=== PATIENT | female | born 1950 | race Caucasian/White ===

== ENCOUNTER 2019-10-22 17:35 | Emergency (ER) | payer MEDICARE, MEDICAID, SELFPAY ==
[2019-10-22 17:50] VITALS: BP 203/68; PULSE 92; RESP 20; TEMP 37.1; O2SAT 94; BMI 51.7
[2019-10-22 18:02] VITALS: BP 186/64; PULSE 86; RESP 20; O2SAT 93
--- NOTE | 2019-10-22 18:20 | ECG_ITS ---
Measurements Intervals [place] Rate: 82 P: 54 [place]: 144 QRS: -72 QRSD: 133 T: 32 QT: 388 QTc: 456 SINUS RHYTHM RIGHT BUNDLE BRANCH BLOCK [120+ ms QRS DURATION, UPRIGHT V1, 40+ ms S IN I/aVL/V4/V5/V6] LEFT ANTERIOR FASCICULAR BLOCK [QRS AXIS <= -45, QR IN I, RS IN II] Compared to ECG 05/01/2019 20:34:47 Left anterior fascicular block now present Ectopic atrial rhythm no longer present Left-axis deviation no longer present Myocardial infarct finding no longer present Electronically Signed On 10-23-2019 17:02:27 CDT by Francisco Miranda M.D. [id number]
--- NOTE | 2019-10-22 18:20 | XR_ITS ---
WS: [id number] XR chest 1V portable [id number] REASON FOR EXAM: sob FINDINGS: The right hilum is again slightly prominent weren't sure if this secondary to mild scoliosi s or actual enlargement. Granulomas are seen throughout the hilar regions particularly the right side . The heart was otherwise normal with arteriosclerotic changes. There is no pneumonia, pleural effusion, pulmonary edema, or mass effect. The enlargement of the right hilum is somewhat similar to May 01, 2019. XR/XR chest 1V portable [id number] IMPRESSION: Persistent prominence of the right hilum.
--- NOTE | 2019-10-22 18:26 | W.ED.SOB ---
HPI - SOB/Dyspnea General: Chief Complaint: Shortness of Breath/Dyspnea Stated Complaint: sob Time Seen by Provider: 10/22/19 18:06 History of Present Illness: HPI Narrative: 69-year-old female says she has been short of breath and coughing and had some sinus pain for the last 5 days. She reports a subjective fever. No contact with people with coronavirus. She comes in because of the shortness of breath. MD elicited complaint: shortness of breath and cough Onset (ago): day(s) (5) Context: recent illness Timing: constant Severity: moderate Exacerbating factors: exertion Relieving factors: nothing Associated symptoms: Reports fever(s); Deny abdominal pain, chest pain, dizziness, nausea, palpitations or vomiting Review of Systems Const: Reports: fever(s); Denies: chills Eyes: Denies: change in vision ENMT: Reports: sinus pain; Denies: swelling of lips/tongue, epistaxis or post nasal drip Card: Reports: edema, swelling of feet/ankles and dyspnea on exertion; Denies: chest pain, palpitations or irregular heart rhythm Resp: Reports: dyspnea, productive cough and non-productive cough; Denies: wheezing GI: Denies: abdominal pain, nausea, vomiting, rectal pain, hematochezia or melena : Denies: dysuria or hematuria Musc: Denies: neck pain, back pain, joint redness or joint warmth Skin/Breast: Denies: rash, pruritus or erythema Neuro: Denies: headache(s), dizziness or vertigo Psych: Denies: anxiety PFS ED PFSH: Medical History (Updated 10/22/19 @ 21:03 by Azeem Carr DO) Abdominal pain Chronic back pain Diabetes Dysphagia Hiatal hernia History of mammogram (~2017) normal Hypertension Sleep apnea with use of continuous positive airway pressure (CPAP) Surgical History History of colonoscopy (~2017) History of laparoscopic cholecystectomy Family History Denies family history of Anesthesia complication Bleeding disorder Social History Smoking and tobacco status: never smoked Second hand smoke exposure: No Alcohol intake: never Adopted: No Caregiver/support person: Yes Lives independently: Yes Household members: none Housing: House Marital status: Single service: No Current occupational status: retired Current occupational exposures/hazards: No Pets and animals: No History of recent travel: No Sexually active: No Current gender identity: Male and Female Riya/Shinto: Lutheran Special riya needs: No Agree to transfusion: No Financial difficulty paying for basics: Decline to Answer Physical Exam Const: GENERAL APPEARANCE: well developed ORIENTATION/CONSCIOUSNESS: Yes oriented to person, Yes oriented to place and Yes oriented to time HENMT: COMMON NORMALS: normocephalic, external ears normal and Normal external nose present HEAD & SCALP: normocephalic FACE & SINUS: normal facial exam NOSE: Normal external nose present and No nasal discharge present EXTERNAL EAR: Yes external ears normal MOUTH: tongue normal Eye: COMMON NORMALS: Equal, round and reactive pupils present, EOMs intact bilaterally and conjunctivae normal EYELID: eyelids normal CONJUNCTIVA: Yes conjunctivae normal PUPIL: Yes Equal, round and reactive pupils present Neck/C-Spine: GENERAL: No tracheal deviation Chest: COMMONS NORMALS: normal inspection of the chest CHEST: No tenderness Resp: COMMON NORMALS: clear to auscultation bilaterally EFFORT & INSPECTION: No tachypneic, No respiratory distress, No retractions, No uses accessory muscles and No tracheal deviation AUSCULTATION: clear to auscultation bilaterally, no rhonchi, no wheezes and lung sounds not diminished Cardio: COMMON NORMALS: regular rate and regular rhythm RATE: regular rate RHYTHM: regular rhythm PERIPHERAL PULSES: radial pulses present GI: INSPECTION: No abdominal distension AUSCULTATION: No Hyperactive bowel sounds present and No Hypoactive bowel sounds present PALPATION: No Guarding due to palpation present (GI) and No Rigid due to palpation PERCUSSION: no dullness to percussion and no tympanic to percussion Neuro: SENSORIUM/ORIENTATION: Yes oriented to person, Yes oriented to place and Yes oriented to time Psych: COMMON NORMALS: mental status grossly normal Skin: COMMON NORMALS: no rashes or lesions noted GENERAL SKIN EXAM: no rashes or lesions noted Course Vital Signs: Vital signs: Vital Signs Temperature 98.8 F 10/22/19 17:50 Pulse Rate 84 10/22/19 20:39 Respiratory Rate 16 10/22/19 21:18 Blood Pressure 146/82 10/22/19 21:18 Pulse Oximetry 97 10/22/19 21:18 MDM - SOB/Dyspnea MDM Narrative: Medical decision making narrative: 69-year-old female presents with cough, sinus pain, shortness of breath. Her white count is 5.5. Hemoglobin is 11. She has some mild thrombocytopenia. She has a right lower lobe infiltrate on chest x-ray that appears new from prior. She will be placed on doxycycline, as her oxygen saturations on room air are normal. She was tested for COVID-19 while she was here she will quarantine until results are back. Lab Data: Labs: Lab Results 10/22/19 10/22/19 10/22/19 Range/Units 18:29 18:29 18:42 WBC 5.5 (4.0-10.0) 10^3/ uL RBC 4.16 (4.1-5.3) 10^6/u L Hgb 10.8 L (11.5-15.3) g/dL Hct 35.8 L (37.0-47.0) % MCV 86.1 (81-99) fL MCH 26.0 L (28.0-34.0) pg MCHC 30.2 (30.0-36.0) g/dL RDW 15.9 H (12.1-15.1) % Plt Count 125 L (130-400) 10^3/c mm MPV 9.3 (7.4-10.4) fL Neut % (Auto) 58.0 % Lymph % (Auto) 30.2 % [place] % (Auto) 7.7 % Eos % (Auto) 3.5 % Baso % (Auto) 0.2 % Neut # (Auto) 3.2 (1.8-7.7) 10^3/u L Lymph # (Auto) 1.7 (0.8-4.8) 10^3/u L [place] # (Auto) 0.4 (0.2-0.9) 10^3/u L Eos # (Auto) 0.2 (0.0-0.8) 10^3/u L Baso # (Auto) 0.0 (0.0-0.1) 10^3/u L Nucleated RBC % (a uto) 0 % Nucleated RBCs # 0.0 /100WBC Sodium 137 (136-145) mmol/L Potassium 4.4 (3.5-5.1) mmol/L Chloride 99 (98-107) mmol/L Carbon Dioxide 28 (22-29) mmol/L Anion Gap 14.4 (5-19) BUN 12 (8-23) mg/dL Creatinine 0.6 (0.5-0.9) mg/dL GFR Calculation 98.8 (90-130) mL/min Glucose 269 H (65-115) mg/dL Calculated Osmolal ity 290 (285-295) mOsm/k g Calcium 9.6 (8.5-10.5) mg/dL Total Bilirubin 0.2 (0.15-1.2) mg/dL AST 32 (0-32) U/L ALT 20 (0-33) U/L Alkaline Phosphata se 75 (35-105) IU/L Troponin T Baselin e 8 (0-10) ng/mL Troponin T 120 Min [place] (0-10) ng/mL Delta Troponin T (0-10) ABS# NT-Pro-B Natriuret Pep 34 (0-125) pg/mL Total Protein 6.6 (6.6-8.7) g/dL Albumin 3.3 L (3.5-5.2) g/dL Globulin 3.3 (1.3-4.6) g/dL Urine Color (Yellow) Urine Appearance (CLEAR) Urine pH (5-7) Ur Specific Gravit y (1.005-1.030) Urine Protein (Negative) Urine Glucose (UA) (Normal) Urine Ketones (Negative) Urine Blood (Negative) Urine Nitrate (Negative) Urine Bilirubin (NEGATIVE) Urine Urobilinogen (Negative) mg/dL Ur Leukocyte Whit ase (Negative) Urine RBC (0-2) /hpf Urine WBC (0-5) /hpf Ur Squamous Epith Cells (0-5) Urine Bacteria (NONE) Urine Mucus 10/22/19 10/22/19 Range/Units 19:52 20:26 WBC (4.0-10.0) 10^3/ uL RBC (4.1-5.3) 10^6/u L Hgb (11.5-15.3) g/dL Hct (37.0-47.0) % MCV (81-99) fL MCH (28.0-34.0) pg MCHC (30.0-36.0) g/dL RDW (12.1-15.1) % Plt Count (130-400) 10^3/c mm MPV (7.4-10.4) fL Neut % (Auto) % Lymph % (Auto) % [place] % (Auto) % Eos % (Auto) % Baso % (Auto) % Neut # (Auto) (1.8-7.7) 10^3/u L Lymph # (Auto) (0.8-4.8) 10^3/u L [place] # (Auto) (0.2-0.9) 10^3/u L Eos # (Auto) (0.0-0.8) 10^3/u L Baso # (Auto) (0.0-0.1) 10^3/u L Nucleated RBC % (a uto) % Nucleated RBCs # /100WBC Sodium (136-145) mmol/L Potassium (3.5-5.1) mmol/L Chloride (98-107) mmol/L Carbon Dioxide (22-29) mmol/L Anion Gap (5-19) BUN (8-23) mg/dL Creatinine (0.5-0.9) mg/dL GFR Calculation (90-130) mL/min Glucose (65-115) mg/dL Calculated Osmolal ity (285-295) mOsm/k g Calcium (8.5-10.5) mg/dL Total Bilirubin (0.15-1.2) mg/dL AST (0-32) U/L ALT (0-33) U/L Alkaline Phosphata se (35-105) IU/L Troponin T Baselin e (0-10) ng/mL Troponin T 120 Min [place] 7.97 (0-10) ng/mL Delta Troponin T -0.03 L (0-10) ABS# NT-Pro-B Natriuret Pep (0-125) pg/mL Total Protein (6.6-8.7) g/dL Albumin (3.5-5.2) g/dL Globulin (1.3-4.6) g/dL Urine Color Yellow (Yellow) Urine Appearance Hazy A (CLEAR) Urine pH 5 (5-7) Ur Specific Gravit y 1.025 (1.005-1.030) Urine Protein Neg (Negative) Urine Glucose (UA) 2+ (Normal) Urine Ketones Negative (Negative) Urine Blood Neg (Negative) Urine Nitrate Negative (Negative) Urine Bilirubin Neg (NEGATIVE) Urine Urobilinogen Norm (Negative) mg/dL Ur Leukocyte Whit [place] Trace H (Negative) Urine RBC 0-4 H (0-2) /hpf Urine WBC 5-10 H (0-5) /hpf Ur Squamous Epith Cells 25-40 H (0-5) Urine Bacteria 2+ H (NONE) Urine Mucus Trace Discharge Plan Discharge Patient Disposition: Home, Self-Care Clinical Impression: Pneumonia Qualifiers: Pneumonia type: due to unspecified organism Laterality: right Lung location: lower lobe of lung Qualified Code(s): J18.9 - Pneumonia, unspecified organism Condition: Stable Prescriptions: New doxycycline hyclate 100 mg capsule 100 mg PO BID 10 Days Qty: 20 RF: 0 albuterol sulfate 90 mcg/actuation HFA aerosol inhaler 2 inh INHALATION Q4H PRN (Reason: shortness of breath or wheezing) Qty: 18 RF: 0 No Action ibuprofen 800 mg tablet 800 mg PO Q8H RF: 0 Lantus Solostar U-100 Insulin 100 unit/mL (3 mL) insulin pen 55 unit SUBCUT DAILY RF: 0 Lantus Solostar U-100 Insulin 100 unit/mL (3 mL) insulin pen 45 unit SUBCUT .evening RF: 0 buspirone 15 mg tablet 15 mg PO BID RF: 0 hydrocodone-acetaminophen 10-325 mg tablet 1 tab PO Q6H PRN (Reason: Pain) RF: 0 hydroxyzine HCl 25 mg tablet 25 mg PO ONCE PRN (Reason: UNKNOWN) RF: 0 omeprazole 20 mg tablet,delayed release (DR/EC) 20 mg PO BID RF: 0 loratadine [Claritin] 10 mg tablet 10 mg PO DAILY RF: 0 lisinopril 10 mg tablet 10 mg PO DAILY RF: 0 metformin 1,000 mg tablet 500 mg PO DAILY RF: 0 cyclobenzaprine 10 mg tablet 10 mg PO TID RF: 0 tolterodine [Detrol] 2 mg tablet 2 mg PO DAILY RF: 0 cetirizine 10 mg Tablet 10 mg PO DAILY RF: 0 aspirin 81 mg Tablet,Delayed Release (Dr/Ec) 81 mg PO DAILY RF: 0 gabapentin 300 mg Capsule See Rx Instructions .ROUTE .COMPLEX RF: 0 Discharge Orders: Discharge Order (Routine); Ordered 10/22/19 Ordered By: Azeem Carr Referrals: Jose Ivan MD [Primary Care Provider] - 4-7 days Discharge Diet: Usual diet Discharge Activity: Increase activity as tolerated Patient Instructions: Pneumonia (ED) Activity Restrictions/Additional Instructions: Return for worsening chest pain, shortness of breath, fever despite 3-4 doses of antibiotics, other concerning symptoms. Check your blood pressure once daily and report numbers to your physician. Discharge Date/Time: 10/22/19 21:21 Coding Level of Care Code ED Speech Therapist Technician for Chg Fwd Exam Comprehensive
[2019-10-22 18:28] VITALS: BP 168/84; PULSE 81; RESP 20; O2SAT 94
[2019-10-22 18:43] LABS: Basophils % 0.2 %; Eosinophils # 0.2 10^3/uL (0.0-0.8); Eosinophils % 3.5 %; Hematocrit 35.8 % (37.0-47.0); Hemoglobin 10.8 g/dL (11.5-15.3); Lymphocytes # 1.7 10^3/uL (0.8-4.8); Lymphocytes % 30.2 %; Mean Corpuscular HGB Conc 30.2 g/dL (30.0-36.0); Mean Corpuscular Volume 86.1 fL (81-99); Mean Platelet Volume 9.3 fL (7.4-10.4); Monocytes # 0.4 10^3/uL (0.2-0.9); Monocytes % 7.7 %; Neutrophils # 3.2 10^3/uL (1.8-7.7); Nucleated Red Blood Cells % 0 %; Platelet Count 125 10^3/cmm (130-400); Red Blood Count 4.16 10^6/uL (4.1-5.3); Red Cell Distribution Width 15.9 % (12.1-15.1); White Blood Count 5.5 10^3/uL (4.0-10.0)
[2019-10-22 19:05] LABS: Alanine Aminotransferase 20 U/L (0-33); Albumin Level 3.3 g/dL (3.5-5.2); Alkaline Phosphatase 75 IU/L (35-105); Anion Gap 14.4 (5-19); Aspartate Amino Transferase 32 U/L (0-32); Blood Urea Nitrogen 12 mg/dL (8-23); Calcium 9.6 mg/dL (8.5-10.5); Carbon Dioxide 28 mmol/L (22-29); Chloride 99 mmol/L (98-107); Globulin 3.3 g/dL (1.3-4.6); Glomerular Filtration Rate 98.8 mL/min (90-130); Glucose 269 mg/dL (65-115); NT Pro B Type Natriuretic Pept 34 pg/mL (0-125); Osmolality Calculated 290 mOsm/kg (285-295); Potassium 4.4 mmol/L (3.5-5.1); Sodium 137 mmol/L (136-145); Total Bilirubin 0.2 mg/dL (0.15-1.2); Total Protein 6.6 g/dL (6.6-8.7)
[2019-10-22 19:19] LABS: Troponin(5th) Baseline 8 ng/mL (0-10)
[2019-10-22] MEDS: hyDRALAzine 20 mg/mL INJ 1 mL 10 MG IVP (20:14)
[2019-10-22 20:16] VITALS: BP 182/82; RESP 18; O2SAT 96
[2019-10-22] MEDS: amlodipine 10 mg Tablet PO (20:26)
[2019-10-22 20:31] LABS: Add Urine Microscopic? YES; Bilirubin Urine Neg (NEGATIVE); Blood Urine Neg (Negative); Glucose Urine UA 2+ (Normal); Ketones Urine Negative (Negative); Leukocyte Esterase Urine Trace (Negative); Nitrate Urine Negative (Negative); Protein Urine Neg (Negative); Specific Gravity, Urine 1.025 (1.005-1.030); Urine Appearance Hazy (CLEAR); Urine Color Yellow (Yellow); Urobilinogen Urine Norm (Negative); pH Urine 5 (5-7)
[2019-10-22 20:33] LABS: Bacteria Urine 2+; RBC Urine 0-4 /hpf (0-2); Squamous Epithelial Cell Urine 25-40 (0-5)
[2019-10-22 20:34] LABS: Add Urine Culture? No; Mucus Urine TRACE
[2019-10-22 20:39] VITALS: BP 162/68; PULSE 84; RESP 16; O2SAT 96
[2019-10-22] MEDS: doxycycline 100 mg Tablet PO (20:53)
[2019-10-22 20:58] LABS: Troponin 5 2HR 7.97 ng/mL (0-10)
[2019-10-22 20:59] LABS: Troponin 5 2HR Delta -0.03 ABS# (0-10)
[2019-10-22 21:18] VITALS: BP 146/82; RESP 16; O2SAT 97
[2019-10-24 19:07] LABS: Quest SARS-CoV-2 RNA NOT DETECTED (NOT DETECTED)
== END 2019-10-22 21:21 | disposition home or self-care (01) ==
PROVIDERS: Emergency Provider Emergency Medicine; Family Provider Family Medicine; PCP Family Medicine
DX: J18.9 Pneumonia, unspecified organism (principal); Z79.4 Long term (current) use of insulin; E11.9 Type 2 diabetes mellitus without complications
CPT/HCPCS: 12345; 36415; 71045; 80053; 81001; 83880; 84484; 85025; 87635; 93005; 99283; 99284; J0360

== ENCOUNTER 2019-10-23 14:10 | Emergency (ER) | payer MEDICARE, MEDICAID, SELFPAY ==
[2019-10-23 14:27] VITALS: BP 176/79; PULSE 87; RESP 14; TEMP 37.1; O2SAT 95; BMI 51.7
--- NOTE | 2019-10-23 14:48 | PC.NURSE ---
PT LEFT AND STATED SHE WAS GOING TO HER PCPS OFFICE
--- NOTE | 2019-10-24 20:33 | PC.NURSE ---
called and informed patient of negative COVID19 results
== END 2019-10-23 14:49 | disposition left against medical advice (07) ==
PROVIDERS: Emergency Provider Emergency Medicine; PCP Family Medicine
DX: Z53.21 Procedure and treatment not carried out due to patient leaving prior to being seen by health care provider (principal)
CPT/HCPCS: 99281

== ENCOUNTER 2020-04-13 10:46 | Emergency (ER) | payer MEDICARE, MEDICAID, SELFPAY ==
[2020-04-13 11:11] VITALS: BP 125/97; PULSE 84; RESP 18; TEMP 37; O2SAT 97; BMI 56.7
--- NOTE | 2020-04-13 11:13 | XRR_ITS ---
PROCEDURE INFORMATION: Exam: XR Chest, 1 View Exam date and time: 04/13/2020 11:19 AM Age: 69 years old Clinical indication: Chest pain; Type not specified TECHNIQUE: Imaging protocol: XR of the chest Views: 1 view. COMPARISON: CR XR chest 1V portable [id number] 10/22/2019 6:51 PM FINDINGS: Lungs: Unremarkable. No consolidation. Pleural space: Unremarkable. No pleural effusion. No pneumothorax. Heart/Mediastinum: Unremarkable. No cardiomegaly. Bones/joints: Unremarkable. XR/XR chest 1V portable [id number] IMPRESSION: No acute findings.
--- NOTE | 2020-04-13 11:13 | ECG_ITS ---
[facility] Test Date: 2020-04-13 Pat Name: Irma Rene Department: Room: Gender: Female [employer] Supervisor: : 1950 Requested By: Jaci Freitas Order Number: [id number] Bernice MD: Tobi Carcamo M.D. Measurements Intervals [place] Rate: 85 P: 65 [place]: 146 QRS: -79 QRSD: 135 T: 46 QT: 381 QTc: 454 Interpretive Statements SINUS RHYTHM RIGHT BUNDLE BRANCH BLOCK [120+ ms QRS DURATION, UPRIGHT V1, 40+ ms S IN I/aVL/V4/V5/V6] LEFT ANTERIOR FASCICULAR BLOCK [QRS AXIS <= -45, QR IN I, RS IN II] Compared to ECG 10/22/2019 20:51:38 No significant changes Electronically Signed On 04-14-2020 18:44:09 FOOT CUTTER by Tobi Carcamo M.D. [id number]
--- NOTE | 2020-04-13 11:40 | W.ED.CHESTPA ---
HPI - Chest Pain General: Chief Complaint: Chest Pain Stated Complaint: CHEST PAIN Time Seen by Provider: 04/13/20 11:12 History of Present Illness: HPI narrative: This patient is a 69-year-old female who comes in today with chest pain. She describes it as a dull pain in her left breast which at times becomes sharp stabbing pains that move around. The pain is been there constantly this morning but she is also had intermittent episodes over the past few weeks. Even before that she has had episodes about which she spoke to her doctor. She does not have any shortness of breath. She has some nausea after she eats but it is not related to the chest pain. She denies fevers or cough although the nurse noted that she has coughed a few times in the room. She has had some dysuria and said that she gets urinary tract infections about every month. She was most recently on antibiotics about a week ago she says. She denies changes in bowel habits. She denies history of cardiac disease but does have history of anxiety. She is a diabetic. MD complaint: chest pain Onset: during rest Pain location: left chest Pain radiation: none Severity: similar to previous episodes Quality: sharp and dull Relieving factors: nothing Exacerbating factors: other (She notices that it is worse when she is sitting or laying down at rest) Associated symptoms: Reports nausea; Deny dyspnea or fever(s) Treatment prior to arrival: none Review of Systems General: Reports: 10 or more systems reviewed and unremarkable except in HPI and below Const: Reports: malaise; Denies: fever(s), chills or fatigue Eyes: Denies: change in vision ENMT: Denies: odynophagia Card: Reports: chest pain; Denies: swelling of feet/ankles Resp: Denies: dyspnea, productive cough or non-productive cough GI: Reports: nausea : Reports: dysuria; Denies: flank pain or difficulty voiding Musc: Denies: neck pain or back pain Skin/Breast: Denies: rash Neuro: Denies: headache(s), numbness in extremities or weakness in extremities Psych: Reports: anxiety Gurmeet/Lymph: Denies: easy bruising or easy bleeding PFS ED PFSH: Medical History (Updated 04/13/20 @ 15:13 by Jaci Barajas MD) Abdominal pain Chronic back pain Diabetes Dysphagia Hiatal hernia History of mammogram (~2016) normal Hypertension Sleep apnea with use of continuous positive airway pressure (CPAP) Surgical History History of colonoscopy (~2016) History of laparoscopic cholecystectomy Family History Denies family history of Anesthesia complication Bleeding disorder Social History Smoking and tobacco status: never smoked Second hand smoke exposure: No Alcohol intake: never Adopted: No Caregiver/support person: Yes Lives independently: Yes Household members: none Housing: House Marital status: Single service: No Current occupational status: retired Current occupational exposures/hazards: No Pets and animals: No History of recent travel: No Sexually active: No Current gender identity: Male and Female Riya/Holiness: Sabianism Special riya needs: No Agree to transfusion: No Financial difficulty paying for basics: Decline to Answer Physical Exam Const: COMMON NORMALS: no acute distress, patient oriented x3, no limitations and alert GENERAL APPEARANCE: cooperative, comfortable and anxious NUTRITIONAL APPEARANCE: obese morbidly obese HENMT: HEAD & SCALP: normal to inspection FACE & SINUS: normal facial exam Eye: GENERAL EYE: appearance normal, both eyes and all related structures Neck/C-Spine: COMMON NORMALS: supple, no meningeal signs and no JVD Chest: COMMONS NORMALS: normal inspection of the chest Resp: COMMON NORMALS: normal respiratory effort, No use of accessory muscles and clear to auscultation bilaterally AUSCULTATION: clear to auscultation bilaterally Cardio: COMMON NORMALS: no JVD, regular rate, regular rhythm and No murmurs present (Cardio) RATE: regular rate RHYTHM: regular rhythm GI: COMMON NORMALS: Normal to inspection, nondistended, normoactive bowel sounds present, Soft to palpation and non-tender INSPECTION: Yes normal to inspection AUSCULTATION: Yes normoactive bowel sounds PALPATION: Yes Soft to palpation Back/Pelvis: COMMON NORMALS: thoracic and lumbar spine normal to inspection Extremity: COMMON NORMALS: normal to inspection Neuro: COMMON NORMALS: patient oriented x3, moves all extremities, no focal motor deficits and no sensory deficits noted SENSORIUM/ORIENTATION: Yes alert MENINGEAL SIGNS: Yes no meningeal signs Psych: COMMON NORMALS: mental status grossly normal, cooperative and normal affect Skin: COMMON NORMALS: no rashes or lesions noted and turgor normal GENERAL SKIN EXAM: no rashes or lesions noted and turgor normal Course ED course: Work-up for cardiac issues was benign. She understands that that is only telling us that she did not have a heart attack today and does not give any indication of something might be pending. She understands that she needs to follow-up with her doctor. She also does have cystitis and is symptomatic with that so I will treat it. She thinks she was on Augmentin most recently but is not sure. Going to put her on cefdinir today. I was not able to find any prior cultures in the EHR here. She also understands follow-up with her doctor regarding these recurrent UTIs. Vital Signs: Vital signs: Vital Signs Temperature 98.7 F 04/13/20 15:43 Pulse Rate 80 04/13/20 15:43 Respiratory Rate 18 04/13/20 15:43 Blood Pressure 139/67 04/13/20 15:43 Pulse Oximetry 97 04/13/20 15:43 MDM - Chest Pain Lab Data: Labs: Lab Results 04/13/20 04/13/20 04/13/20 Range/Units 11:48 11:48 11:48 WBC 5.7 (4.0-10.0) 10^3/ uL RBC 4.54 (4.1-5.3) 10^6/u L Hgb 12.4 (11.5-15.3) g/dL Hct 39.7 (37.0-47.0) % MCV 87.4 (81-99) fL MCH 27.3 L (28.0-34.0) pg MCHC 31.2 (30.0-36.0) g/dL RDW 14.0 (12.1-15.1) % Plt Count 130 (130-400) 10^3/c mm MPV 9.6 (7.4-10.4) fL Neut % (Auto) 54.6 % Lymph % (Auto) 34.2 % [place] % (Auto) 7.6 % Eos % (Auto) 3.2 % Baso % (Auto) 0.2 % Neut # (Auto) 3.11 (1.8-7.7) 10^3/u L Lymph # (Auto) 1.9 (0.8-4.8) 10^3/u L [place] # (Auto) 0.4 (0.2-0.9) 10^3/u L Eos # (Auto) 0.2 (0.0-0.8) 10^3/u L Baso # (Auto) 0.0 (0.0-0.1) 10^3/u L Nucleated RBC % (a uto) 0 % Nucleated RBCs # 0.0 /100WBC PT 14.10 (12.1-14.9) SECO NDS INR 1.05 (0.8-1.2) Sodium 134 L (136-145) mmol/L Potassium 4.4 (3.5-5.1) mmol/L Chloride 99 (98-107) mmol/L Carbon Dioxide 28 (22-29) mmol/L Anion Gap 11.4 (5-19) BUN 11 (8-23) mg/dL Creatinine 0.7 (0.5-0.9) mg/dL GFR Calculation 82.7 L (90-130) mL/min Glucose 243 H (65-115) mg/dL Calculated Osmolal ity 285 (285-295) mOsm/k g Calcium 9.0 (8.5-10.5) mg/dL Total Bilirubin 0.2 (0.15-1.2) mg/dL AST 41 H (0-32) U/L ALT 32 (0-33) U/L Alkaline Phosphata se 88 (35-105) IU/L Troponin T Baselin e (0-10) ng/L Troponin T 120 Min delfina (0-10) ng/L Delta Troponin T (0-10) ABS# NT-Pro-B Natriuret Pep 13 (0-125) pg/mL Total Protein 5.9 L (6.6-8.7) g/dL Albumin 3.3 L (3.5-5.2) g/dL Globulin 2.6 (1.3-4.6) g/dL Lipase 17 (13-60) U/L Urine Color (Yellow) Urine Appearance (CLEAR) Urine pH (5-7) Ur Specific Gravit y (1.005-1.030) Urine Protein (Negative) Urine Glucose (UA) (Normal) Urine Ketones (Negative) Urine Blood (Negative) Urine Nitrate (Negative) Urine Bilirubin (Negative) Urine Urobilinogen (Negative) mg/dL Ur Leukocyte Whit ase (Negative) Urine RBC (0-2) /hpf Urine WBC (0-5) /hpf Ur Squamous Epith Cells (0-5) /hpf Amorphous Sediment Urine Bacteria (NONE) /hpf 04/13/20 04/13/20 04/13/20 Range/Units 11:48 13:08 13:55 WBC (4.0-10.0) 10^3/ uL RBC (4.1-5.3) 10^6/u L Hgb (11.5-15.3) g/dL Hct (37.0-47.0) % MCV (81-99) fL MCH (28.0-34.0) pg MCHC (30.0-36.0) g/dL RDW (12.1-15.1) % Plt Count (130-400) 10^3/c mm MPV (7.4-10.4) fL Neut % (Auto) % Lymph % (Auto) % [place] % (Auto) % Eos % (Auto) % Baso % (Auto) % Neut # (Auto) (1.8-7.7) 10^3/u L Lymph # (Auto) (0.8-4.8) 10^3/u L [place] # (Auto) (0.2-0.9) 10^3/u L Eos # (Auto) (0.0-0.8) 10^3/u L Baso # (Auto) (0.0-0.1) 10^3/u L Nucleated RBC % (a uto) % Nucleated RBCs # /100WBC PT (12.1-14.9) SECO NDS INR (0.8-1.2) Sodium (136-145) mmol/L Potassium (3.5-5.1) mmol/L Chloride (98-107) mmol/L Carbon Dioxide (22-29) mmol/L Anion Gap (5-19) BUN (8-23) mg/dL Creatinine (0.5-0.9) mg/dL GFR Calculation (90-130) mL/min Glucose (65-115) mg/dL Calculated Osmolal ity (285-295) mOsm/k g Calcium (8.5-10.5) mg/dL Total Bilirubin (0.15-1.2) mg/dL AST (0-32) U/L ALT (0-33) U/L Alkaline Phosphata se (35-105) IU/L Troponin T Baselin e 6 (0-10) ng/L Troponin T 120 Min delfina 6.00 (0-10) ng/L Delta Troponin T 0 (0-10) ABS# NT-Pro-B Natriuret Pep (0-125) pg/mL Total Protein (6.6-8.7) g/dL Albumin (3.5-5.2) g/dL Globulin (1.3-4.6) g/dL Lipase (13-60) U/L Urine Color Straw (Yellow) Urine Appearance Hazy A (CLEAR) Urine pH 6.5 (5-7) Ur Specific Gravit y 1.015 (1.005-1.030) Urine Protein Trace (Negative) Urine Glucose (UA) Norm (Normal) Urine Ketones Negative (Negative) Urine Blood Neg (Negative) Urine Nitrate Positive H (Negative) Urine Bilirubin Neg (Negative) Urine Urobilinogen Norm (Negative) mg/dL Ur Leukocyte Whit ase 1+ H (Negative) Urine RBC None (0-2) /hpf Urine WBC 5-10 H (0-5) /hpf Ur Squamous Epith Cells 0-4 H (0-5) /hpf Amorphous Sediment Not Reportable Urine Bacteria 2+ H (NONE) /hpf Discharge Plan Discharge Patient Disposition: Home Clinical Impression: Chest pain Qualifiers: Chest pain type: unspecified Qualified Code(s): R07.9 - Chest pain, unspecified Urinary tract infection Qualifiers: Urinary tract infection type: acute cystitis Hematuria presence: without hematuria Qualified Code(s): N30.00 - Acute cystitis without hematuria Condition: Stable Prescriptions: New cefdinir 300 mg capsule 300 mg PO BID 10 Days Qty: 20 RF: 0 No Action ibuprofen 800 mg tablet 800 mg PO Q8H RF: 0 Lantus Solostar U-100 Insulin 100 unit/mL (3 mL) insulin pen 55 unit SUBCUT DAILY RF: 0 Lantus Solostar U-100 Insulin 100 unit/mL (3 mL) insulin pen 45 unit SUBCUT .evening RF: 0 buspirone 15 mg tablet 15 mg PO BID RF: 0 hydrocodone-acetaminophen 10-325 mg tablet 1 tab PO Q6H PRN (Reason: Pain) RF: 0 hydroxyzine HCl 25 mg tablet 25 mg PO ONCE PRN (Reason: UNKNOWN) RF: 0 omeprazole 20 mg tablet,delayed release (DR/EC) 20 mg PO BID RF: 0 loratadine [Claritin] 10 mg tablet 10 mg PO DAILY RF: 0 lisinopril 10 mg tablet 10 mg PO DAILY RF: 0 metformin 1,000 mg tablet 500 mg PO DAILY RF: 0 cyclobenzaprine 10 mg tablet 10 mg PO TID RF: 0 tolterodine [Detrol] 2 mg tablet 2 mg PO DAILY RF: 0 cetirizine 10 mg Tablet 10 mg PO DAILY RF: 0 aspirin 81 mg Tablet,Delayed Release (Dr/Ec) 81 mg PO DAILY RF: 0 gabapentin 300 mg Capsule See Rx Instructions .ROUTE .COMPLEX RF: 0 albuterol sulfate 90 mcg/actuation HFA aerosol inhaler 2 inh INHALATION Q4H PRN (Reason: shortness of breath or wheezing) Qty: 18 RF: 0 Discharge Orders: Discharge Order (Routine); Ordered 04/13/20 Ordered By: Jaci Barajas Referrals: Jose Ivan MD [Primary Care Provider] - Discharge Diet: Usual diet Discharge Activity: Resume usual activity Patient Instructions: Chest Pain (ED), Urinary Tract Infection in Women (ED) Activity Restrictions/Additional Instructions: Talk to Dr. Ivan about your chest pain and about the recurrent urinary tract infections. We did send a culture today so he can get the results of that next week. Return to the ER if worse chest pain, fever, vomiting or any other new or concerning symptoms. Coding Level of Care Code ED Hand Embroiderer for Chg Fwd Exam Comprehensive
[2020-04-13 11:49] VITALS: BP 125/97; PULSE 81; RESP 18; O2SAT 96
[2020-04-13 11:53] VITALS: BP 125/97; PULSE 79; RESP 18; O2SAT 95
[2020-04-13 11:53] LABS: Basophils % 0.2 %; Eosinophils # 0.2 10^3/uL (0.0-0.8); Eosinophils % 3.2 %; Hematocrit 39.7 % (37.0-47.0); Hemoglobin 12.4 g/dL (11.5-15.3); Lymphocytes # 1.9 10^3/uL (0.8-4.8); Lymphocytes % 34.2 %; Mean Corpuscular HGB Conc 31.2 g/dL (30.0-36.0); Mean Corpuscular Hemoglobin 27.3 pg (28.0-34.0); Mean Corpuscular Volume 87.4 fL (81-99); Mean Platelet Volume 9.6 fL (7.4-10.4); Monocytes # 0.4 10^3/uL (0.2-0.9); Monocytes % 7.6 %; Neutrophils # 3.11 10^3/uL (1.8-7.7); Neutrophils % 54.6 %; Nucleated Red Blood Cells % 0 %; Platelet Count 130 10^3/cmm (130-400); Red Blood Count 4.54 10^6/uL (4.1-5.3); White Blood Count 5.7 10^3/uL (4.0-10.0)
[2020-04-13 12:10] LABS: INR 1.05 (0.8-1.2)
[2020-04-13 12:18] LABS: Troponin(5th) Baseline 6 ng/L (0-10)
[2020-04-13 12:27] LABS: Alanine Aminotransferase 32 U/L (0-33); Albumin Level 3.3 g/dL (3.5-5.2); Alkaline Phosphatase 88 IU/L (35-105); Anion Gap 11.4 (5-19); Aspartate Amino Transferase 41 U/L (0-32); Blood Urea Nitrogen 11 mg/dL (8-23); Carbon Dioxide 28 mmol/L (22-29); Chloride 99 mmol/L (98-107); Globulin 2.6 g/dL (1.3-4.6); Glomerular Filtration Rate 82.7 mL/min (90-130); Glucose 243 mg/dL (65-115); Lipase 17 U/L (13-60); NT Pro B Type Natriuretic Pept 13 pg/mL (0-125); Osmolality Calculated 285 mOsm/kg (285-295); Potassium 4.4 mmol/L (3.5-5.1); Sodium 134 mmol/L (136-145); Total Bilirubin 0.2 mg/dL (0.15-1.2); Total Protein 5.9 g/dL (6.6-8.7)
[2020-04-13 13:56] VITALS: BP 125/69; PULSE 80; RESP 18; O2SAT 96
[2020-04-13 14:29] LABS: Troponin 5 2HR Delta 0 ABS# (0-10)
[2020-04-13 14:37] LABS: Blood Urine Neg (Negative); Glucose Urine UA Norm (Normal); Ketones Urine Negative (Negative); Nitrate Urine Positive (Negative); Protein Urine Trace (Negative); Specific Gravity, Urine 1.015 (1.005-1.030); Urine Appearance Hazy (CLEAR); Urine Color Straw (Yellow); pH Urine 6.5 (5-7)
[2020-04-13 14:38] LABS: Add Urine Culture? Yes; Add Urine Microscopic? YES; Bacteria Urine 2+ /hpf; Bilirubin Urine Neg (Negative); Leukocyte Esterase Urine 1+ (Negative); Squamous Epithelial Cell Urine 0-4 /hpf (0-5); Urobilinogen Urine Norm (Negative)
[2020-04-13 15:43] VITALS: BP 139/67; PULSE 80; RESP 18; TEMP 37.1; O2SAT 97
--- NOTE | 2020-04-13 17:13 | ECG_ITS ---
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 Measurements Intervals [place] Rate: 80 P: 54 MD: 161 QRS: -77 QRSD: 138 T: 14 QT: 397 QTc: 459 Interpretive Statements SINUS RHYTHM RIGHT BUNDLE BRANCH BLOCK [120+ ms QRS DURATION, UPRIGHT V1, 40+ ms S IN I/aVL/V4/V5/V6] LEFT ANTERIOR FASCICULAR BLOCK [QRS AXIS <= -45, QR IN I, RS IN II] POSSIBLE SEPTAL MYOCARDIAL INFARCTION , PROBABLY OLD [30 ms Q WAVE IN V1/V2] Compared to ECG 04/13/2020 11:04:20 Myocardial infarct finding now present Electronically Signed On 04-14-2020 19:18:17 GERIATRIC SOCIAL WORKER by Tobi Carcamo M.D. [id number]
== END 2020-04-13 15:44 | disposition home or self-care (01) ==
PROVIDERS: Emergency Provider Emergency Medicine; PCP Family Medicine
DX: R07.9 Chest pain, unspecified (principal); N30.00 Acute cystitis without hematuria; Z79.4 Long term (current) use of insulin; Z79.82 Long term (current) use of aspirin; E11.9 Type 2 diabetes mellitus without complications
CPT/HCPCS: 12345; 71045; 80053; 81001; 83690; 83880; 84484; 85025; 85610; 87077; 87086; 87186; 93005; 99283

== ENCOUNTER → 2020-06-04 14:04 | Outpatient (BNVA) | payer MEDICARE, MEDICAID, SELFPAY | PROVIDERS: PCP Family Medicine; Referring Provider Family Medicine; Visit Provider Internal Medicine | DX: E11.40 Type 2 diabetes mellitus with diabetic neuropathy, unspecified (principal); E11.65 Type 2 diabetes mellitus with hyperglycemia; N39.0 Urinary tract infection, site not specified; R63.5 Abnormal weight gain | CPT/HCPCS: 99204 ==

== ENCOUNTER 2020-06-05 13:39 | Outpatient (CLI) | payer MEDICARE, MEDICAID, SELFPAY ==
[2020-06-05 14:36] LABS: Thyroid Stimulating Hormone 1.22 uIU/mL (0.27-4.20)
[2020-06-05 15:50] LABS: Estmated Average Glucose 235; Hemoglobin A1C 9.8 % (4.0-6.0)
[2020-06-05 17:50] LABS: Free T4 Free Thyroxine 1.26 ng/dL (0.82-1.77)
== END 2020-06-05 13:40 | disposition home or self-care (01) ==
LOC: LAB 13:42
PROVIDERS: PCP Family Medicine; Visit Provider Internal Medicine
DX: E11.40 Type 2 diabetes mellitus with diabetic neuropathy, unspecified (principal); E11.65 Type 2 diabetes mellitus with hyperglycemia; R63.5 Abnormal weight gain
CPT/HCPCS: 36415; 83036; 84439; 84443

== ENCOUNTER 2020-11-18 06:25 | Emergency (ER) | payer MEDICARE, MEDICAID, SELFPAY ==
[2020-11-18 06:36] VITALS: BP 174/70; PULSE 87; RESP 18; TEMP 36.8; O2SAT 97; BMI 51.7
--- NOTE | 2020-11-18 07:45 | CT_ITS ---
WS: [id number] CT ABDOMEN PELVIS TECHNIQUE: Contrast-enhanced CT of the abdomen and pelvis with coronal and sagittal reformatted image s. CLINICAL INFORMATION: abd pain COMPARISON: DLP: 1950.[address] scans at [facility] use at least one of these dose optimization techniques: automat ed exposure control; mA and/or kV adjustment per patient size (includes targeted exams where dose is matched to clinical indication); or iterative reconstruction. FINDINGS: Lung bases are well aerated. Hepatomegaly with slight cirrhotic configuration unchanged from 2019. No rmal portal vein and splenic vein. 12 mm left adrenal adenoma is unchanged. Splenomegaly. Normal GE j unction. Normal pancreatic parenchymal enhancement. Prior cholecystectomy. Normal caliber abdominal aorta. No hydronephrosis in either kidney. Right Adrenal gland is normal. Pr ior ventral abdominal wall hernia repair. Sigmoid diverticulosis. No evidence of acute diverticulitis . Fat-containing umbilical hernia. Prior hysterectomy. CT/CT abdomen pelvis w con* [id number] IMPRESSION: 1. Hepatomegaly with diffuse fatty infiltration of the liver. Slight cirrhotic contour to the liver unchanged 2019. Correlate with liver function tests. Sple nomegaly. 2. Prior cholecystectomy and hysterectomy. 3. Prior ventral abdominal wall hernia repair. 4. Normal sigmoid colon. A few sigmoid diverticuli. No evidence of acute diver ticulitis. 5. Stable 12 mm left adrenal adenoma. 6. No acute abdominal or pelvic findings. Notified Humphrey Velasquez DO at 11/18/2020 9:35 AM.
--- NOTE | 2020-11-18 07:46 | W.ED.GENADLT ---
HPI - General Adult General: Chief complaint: General Medical Stated complaint: SOB Time Seen by Provider: 11/18/20 07:01 History of Present Illness: HPI narrative: 70-year-old female presents to the emergency room with complaints of shortness of breath. She denies it directly to abdominal discomfort. She states she has been constipated with nausea for the last month whenever she eats she gets very bloated when she gets bloated she feels like she cannot take a deep breath and feels more short short of breath. She does not really have any orthopnea denies any chest pain no diarrhea no anosmia no productive cough no orthopnea. She denies dysuria urgency or frequency. Onset (ago): month(s) (1) Location: abdomen Radiation: non-radiation Severity: moderate Quality: aching Pain Consistency: intermittent Relieving factors: none Exacerbating factors: eating Associated symptoms: Reports dyspnea, malaise, nausea, short of breath and weakness; Deny chest pain, confusion, cough, diaphoresis, decreased appetite, fevers/chills, headache(s), rash, palpitations, seizures, syncope or vomiting Treatments prior to arrival: none Review of Systems Const: Reports: malaise; Denies: diaphoresis ENMT: Denies: throat pain, ear or mastoid pain, nasal discharge or nasal congestion Card: Denies: chest pain, palpitations or syncope Resp: Reports: dyspnea GI: Reports: nausea; Denies: vomiting : Denies: flank pain, difficulty voiding, dysuria, urinary frequency or urinary urgency Skin/Breast: Denies: rash Neuro: Denies: headache(s) or confusion PFS ED PFSH: Medical History Abdominal pain Chronic back pain Diabetes Dysphagia Fibromyalgia Hiatal hernia History of mammogram (~2017) normal Hypertension Recurrent UTI Sciatica Sleep apnea with use of continuous positive airway pressure (CPAP) Surgical History History of colonoscopy (~2017) History of laparoscopic cholecystectomy History of removal of cyst RENAL History of total abdominal hysterectomy and bilateral salpingo-oophorectomy Hx of appendectomy Hx of hysterectomy Family History Mother Diabetes Father No problems noted. Denies family history of Colon cancer Ovarian cancer Heart disease Hypercholesteremia Breast cancer Uterine cancer Thyroid disease Social History Smoking and tobacco status: never smoked Second hand smoke exposure: No Alcohol intake: never Additional social history: - Tobacco use: Never Alcohol use: denies Drug use: denies Physical Exam Const: COMMON NORMALS: no acute distress GENERAL APPEARANCE: cooperative and comfortable ORIENTATION/CONSCIOUSNESS: Yes awake, Yes oriented to person, Yes oriented to place and Yes oriented to time HENMT: COMMON NORMALS: normocephalic, atraumatic, hearing grossly normal bilaterally and external ears normal HEAD & SCALP: normocephalic and atraumatic EXTERNAL EAR: Yes external ears normal Neck/C-Spine: COMMON NORMALS: no JVD Resp: COMMON NORMALS: normal respiratory effort, No retractions, No use of accessory muscles and clear to auscultation bilaterally AUSCULTATION: clear to auscultation bilaterally Cardio: COMMON NORMALS: no JVD, regular rate, regular rhythm and No murmurs present (Cardio) RATE: regular rate RHYTHM: regular rhythm GI: COMMON NORMALS: No hepatosplenomegaly present AUSCULTATION: Yes Hypoactive bowel sounds present PALPATION: Yes Tenderness to palpation present (GI) (Periumbilical), No Guarding due to palpation present (GI) and Yes No hepatosplenomegaly present Extremity: COMMON NORMALS: normal to inspection, capillary refill normal, no clubbing, cyanosis or edema, no calf tenderness and no pedal edema Neuro: SENSORIUM/ORIENTATION: Yes oriented to person, Yes oriented to place and Yes oriented to time Skin: COMMON NORMALS: no rashes or lesions noted GENERAL SKIN EXAM: no rashes or lesions noted Course Vital Signs: Vital signs: Vital Signs Temperature 98.0 F 11/18/20 10:33 Pulse Rate 91 11/18/20 10:33 Respiratory Rate 20 H 11/18/20 10:33 Blood Pressure 150/91 11/18/20 10:33 Pulse Oximetry 95 11/18/20 10:33 MDM - General Adult MDM Narrative: Medical decision making narrative: Reviewed labs with the pain patient. She is doing somewhat better will get and go ahead and discharge home with think a lot of her issues are diabetic gastroparesis she also some constipation issues we will start her on some mag citrate for now encourage her to follow-up with her primary care doctor to be further evaluated discussed medications for diabetic gastroparesis return if has problems Lab Data: Labs: Lab Results 11/18/20 11/18/20 11/18/20 Range/Units 07:21 07:56 08:22 WBC 6.8 (4.0-10.0) 10^3/ uL RBC 4.37 (4.1-5.3) 10^6/u L Hgb 12.5 (11.5-15.3) g/dL Hct 39.3 (37.0-47.0) % MCV 89.9 (81-99) fL MCH 28.6 (28.0-34.0) pg MCHC 31.8 (30.0-36.0) g/dL RDW 13.3 (12.1-15.1) % Plt Count 155 (130-400) 10^3/c mm MPV 9.5 (7.4-10.4) fL Neut % (Auto) 58.8 % Lymph % (Auto) 30.5 % [place] % (Auto) 8.3 % Eos % (Auto) 1.8 % Baso % (Auto) 0.3 % Neut # (Auto) 3.98 (1.8-7.7) 10^3/u L Lymph # (Auto) 2.1 (0.8-4.8) 10^3/u L [place] # (Auto) 0.6 (0.2-0.9) 10^3/u L Eos # (Auto) 0.1 (0.0-0.8) 10^3/u L Baso # (Auto) 0.0 (0.0-0.1) 10^3/u L Nucleated RBC % (a uto) 0 % Nucleated RBCs # 0.0 /100WBC Sodium (136-145) mmol/L Potassium (3.5-5.1) mmol/L Chloride (98-107) mmol/L Carbon Dioxide (22-29) mmol/L Anion Gap (5-19) BUN (8-23) mg/dL Creatinine (0.5-0.9) mg/dL GFR Calculation Glucose (65-115) mg/dL POC Glucose 97 (70-110) mg/dL Calculated Osmolal ity (285-295) mOsm/k g Calcium (8.5-10.5) mg/dL Total Bilirubin (0.15-1.2) mg/dL AST (0-32) U/L ALT (0-33) U/L Alkaline Phosphata se (35-105) IU/L Total Protein (6.6-8.7) g/dL Albumin (3.5-5.2) g/dL Globulin (1.3-4.6) g/dL Lipase (13-60) U/L Urine Color Yellow (Yellow) Urine Appearance Clear (CLEAR) Urine pH 6.5 (5-7) Ur Specific Gravit y 1.020 (1.005-1.030) Urine Protein Neg (Negative) Urine Glucose (UA) Norm (Normal) Urine Ketones Negative (Negative) Urine Blood Neg (Negative) Urine Nitrate Negative (Negative) Urine Bilirubin Neg (Negative) Urine Urobilinogen Norm (Negative) mg/dL Ur Leukocyte Whit ase Negative (Negative) 11/18/20 Range/Units 08:22 WBC (4.0-10.0) 10^3/ uL RBC (4.1-5.3) 10^6/u L Hgb (11.5-15.3) g/dL Hct (37.0-47.0) % MCV (81-99) fL MCH (28.0-34.0) pg MCHC (30.0-36.0) g/dL RDW (12.1-15.1) % Plt Count (130-400) 10^3/c mm MPV (7.4-10.4) fL Neut % (Auto) % Lymph % (Auto) % [place] % (Auto) % Eos % (Auto) % Baso % (Auto) % Neut # (Auto) (1.8-7.7) 10^3/u L Lymph # (Auto) (0.8-4.8) 10^3/u L Burt # (Auto) (0.2-0.9) 10^3/u L Eos # (Auto) (0.0-0.8) 10^3/u L Baso # (Auto) (0.0-0.1) 10^3/u L Nucleated RBC % (a uto) % Nucleated RBCs # /100WBC Sodium 135 L (136-145) mmol/L Potassium 4.1 (3.5-5.1) mmol/L Chloride 101 (98-107) mmol/L Carbon Dioxide 26 (22-29) mmol/L Anion Gap 12.1 (5-19) BUN 10 (8-23) mg/dL Creatinine 0.5 (0.5-0.9) mg/dL GFR Calculation Not Reportable Glucose 81 (65-115) mg/dL POC Glucose (70-110) mg/dL Calculated Osmolal ity 278 L (285-295) mOsm/k g Calcium 9.2 (8.5-10.5) mg/dL Total Bilirubin 0.3 (0.15-1.2) mg/dL AST 28 (0-32) U/L ALT 23 (0-33) U/L Alkaline Phosphata se 67 (35-105) IU/L Total Protein 6.6 (6.6-8.7) g/dL Albumin 3.5 (3.5-5.2) g/dL Globulin 3.1 (1.3-4.6) g/dL Lipase 35 (13-60) U/L Urine Color (Yellow) Urine Appearance (CLEAR) Urine pH (5-7) Ur Specific Gravit y (1.005-1.030) Urine Protein (Negative) Urine Glucose (UA) (Normal) Urine Ketones (Negative) Urine Blood (Negative) Urine Nitrate (Negative) Urine Bilirubin (Negative) Urine Urobilinogen (Negative) mg/dL Ur Leukocyte Whit ase (Negative) Discharge Plan Discharge Patient Disposition: Home Clinical Impression: Constipation, Obesity, Diabetic gastroparesis, Diabetes mellitus Condition: Stable Prescriptions: New magnesium citrate Solution 150 ml PO BID PRN (Reason: constipation) Qty: 296 RF: 0 No Action ibuprofen 800 mg tablet 800 mg PO Q8H RF: 0 Lantus Solostar U-100 Insulin 100 unit/mL (3 mL) insulin pen 55 unit SUBCUT DAILY RF: 0 Lantus Solostar U-100 Insulin 100 unit/mL (3 mL) insulin pen 45 unit SUBCUT .evening RF: 0 buspirone 15 mg tablet 15 mg PO BID RF: 0 hydrocodone-acetaminophen 10-325 mg tablet 1 tab PO Q6H PRN (Reason: Pain) RF: 0 hydroxyzine HCl 25 mg tablet 25 mg PO ONCE PRN (Reason: UNKNOWN) RF: 0 omeprazole 20 mg tablet,delayed release (DR/EC) 20 mg PO BID RF: 0 loratadine [Claritin] 10 mg tablet 10 mg PO DAILY RF: 0 lisinopril 10 mg tablet 10 mg PO DAILY RF: 0 cyclobenzaprine 10 mg tablet 10 mg PO TID RF: 0 tolterodine [Detrol] 2 mg tablet 2 mg PO DAILY RF: 0 Victoza 2-Jae 0.6 mg/0.1 mL (18 mg/3 mL) pen injector See Rx Instructions SUBCUT .COMPLEX Qty: 6 RF: 3 (DME) pen needle, diabetic [BD Melony 2nd Gen Pen Needle] 32 gauge x 5/32 needle See Rx Instructions .ROUTE .MEDSUPPLY Qty: 50 RF: 3 cetirizine 10 mg Tablet 10 mg PO DAILY RF: 0 aspirin 81 mg Tablet,Delayed Release (Dr/Ec) 81 mg PO DAILY RF: 0 albuterol sulfate 90 mcg/actuation HFA aerosol inhaler 2 inh INHALATION Q4H PRN (Reason: shortness of breath or wheezing) Qty: 18 RF: 0 gabapentin 300 mg capsule 300 mg PO TID PRNRF: 0 Discharge Orders: Discharge ED (Routine); Ordered 11/18/20 Ordered By: Humphrey Velasquez Referrals: Jose Ivan MD [Primary Care Provider] - Discharge Diet: Usual diet Discharge Activity: Resume usual activity Patient Instructions: Opioid Safety Activity Restrictions/Additional Instructions: Follow-up with your primary care doctor within the next 1 to 2 weeks. Coding Level of Care Code ED Workforce Management Consultant for Jamshid Fwd Exam Comprehensive
[2020-11-18 08:00] LABS: Add Urine Microscopic? NO; Charge for UA Resulting for Rev
[2020-11-18 08:10] LABS: Bilirubin Urine Neg (Negative); Blood Urine Neg (Negative); Glucose Urine UA Norm (Normal); Ketones Urine Negative (Negative); Leukocyte Esterase Urine Negative (Negative); Nitrate Urine Negative (Negative); Protein Urine Neg (Negative); Urine Appearance Clear (CLEAR); Urine Color Yellow (Yellow); Urobilinogen Urine Norm (Negative); pH Urine 6.5 (5-7)
[2020-11-18 08:17] LABS: Glucose Point of Care 97 mg/dL (70-110)
[2020-11-18 08:35] LABS: Basophils % 0.3 %; Eosinophils # 0.1 10^3/uL (0.0-0.8); Eosinophils % 1.8 %; Hematocrit 39.3 % (37.0-47.0); Hemoglobin 12.5 g/dL (11.5-15.3); Lymphocytes # 2.1 10^3/uL (0.8-4.8); Lymphocytes % 30.5 %; Mean Corpuscular HGB Conc 31.8 g/dL (30.0-36.0); Mean Corpuscular Hemoglobin 28.6 pg (28.0-34.0); Mean Corpuscular Volume 89.9 fL (81-99); Mean Platelet Volume 9.5 fL (7.4-10.4); Monocytes # 0.6 10^3/uL (0.2-0.9); Monocytes % 8.3 %; Neutrophils # 3.98 10^3/uL (1.8-7.7); Neutrophils % 58.8 %; Nucleated Red Blood Cells % 0 %; Platelet Count 155 10^3/cmm (130-400); Red Blood Count 4.37 10^6/uL (4.1-5.3); Red Cell Distribution Width 13.3 % (12.1-15.1); White Blood Count 6.8 10^3/uL (4.0-10.0)
[2020-11-18 08:47] LABS: Alanine Aminotransferase 23 U/L (0-33); Albumin Level 3.5 g/dL (3.5-5.2); Alkaline Phosphatase 67 IU/L (35-105); Anion Gap 12.1 (5-19); Aspartate Amino Transferase 28 U/L (0-32); Blood Urea Nitrogen 10 mg/dL (8-23); Calcium 9.2 mg/dL (8.5-10.5); Carbon Dioxide 26 mmol/L (22-29); Chloride 101 mmol/L (98-107); Globulin 3.1 g/dL (1.3-4.6); Glucose 81 mg/dL (65-115); Lipase 35 U/L (13-60); Osmolality Calculated 278 mOsm/kg (285-295); Potassium 4.1 mmol/L (3.5-5.1); Sodium 135 mmol/L (136-145); Total Bilirubin 0.3 mg/dL (0.15-1.2); Total Protein 6.6 g/dL (6.6-8.7)
--- NOTE | 2020-11-18 08:57 | XRR_ITS ---
PROCEDURE INFORMATION: Exam: XR Chest Exam date and time: 11/18/2020 8:57 AM Age: 70 years old Clinical indication: Cough and dyspnea; Additional info: Dyspnea/cough TECHNIQUE: Imaging protocol: XR of the chest. Views: 1 view. COMPARISON: CR XR chest 1V portable [id number] 04/13/2020 11:18 AM FINDINGS: Lungs: Unremarkable. No consolidation. Pleural spaces: Unremarkable. No pleural effusion. No pneumothorax. Heart/Mediastinum: The heart and mediastinum are normal considering mild patient rotation to the right. Bones/joints: Unremarkable. XR/XR chest 1V portable [id number] IMPRESSION: No acute cardiopulmonary abnormality.
[2020-11-18] MEDS: iohexol 300 mg/mL 100 mL Btl IV (09:02)
[2020-11-18 09:36] VITALS: BP 120/85; PULSE 78; RESP 20; O2SAT 96
[2020-11-18 10:33] VITALS: BP 150/91; PULSE 91; RESP 20; TEMP 36.7; O2SAT 95
== END 2020-11-18 10:53 | disposition home or self-care (01) ==
PROVIDERS: Emergency Provider Family Medicine; PCP Family Medicine
DX: K59.00 Constipation, unspecified (principal); E66.9 Obesity, unspecified; E11.43 Type 2 diabetes mellitus with diabetic autonomic (poly)neuropathy; K31.84 Gastroparesis; Z79.4 Long term (current) use of insulin; Z79.82 Long term (current) use of aspirin; I10 Essential (primary) hypertension
CPT/HCPCS: 36416; 71045; 74177; 80053; 81003; 82962; 83690; 85025; 99283; Q9967

== ENCOUNTER → 2021-01-09 12:06 | Outpatient (BNVA) | payer MEDICARE, MEDICAID, SELFPAY | PROVIDERS: PCP Family Medicine; Visit Provider Internal Medicine Cardiovascular Disease | DX: R06.02 Shortness of breath (principal); I50.33 Acute on chronic diastolic (congestive) heart failure; R06.00 Dyspnea, unspecified; R07.89 Other chest pain; E11.40 Type 2 diabetes mellitus with diabetic neuropathy, unspecified; E11.65 Type 2 diabetes mellitus with hyperglycemia; R03.0 Elevated blood-pressure reading, without diagnosis of hypertension | CPT/HCPCS: 80048; 83880; 85379 ==

== ENCOUNTER 2021-02-12 12:39 | Outpatient (CLI) | payer MEDICARE, MEDICAID, SELFPAY ==
--- NOTE | 2021-02-12 12:50 | USCV_ITS ---
Irma Rene Age: 70 Gender: F : 1950 Exam Date: 02/12/2021 13:46 Ordering Phys: Azael Ackerman MD ([email or web address]) Technologist: Estrella Kirkland [place] [facility] [place]: DYSPNEA BP: 105 / 80 HR: 68 Rhythm: Sinus Technical Quality: Technically difficult study MEASUREMENTS (Male / Female) Normal Values 2D ECHO LV Diastolic Diameter PLAX 4.0 cm 4.2 - 5.9 / 3.9 - 5.3 cm LV Systolic Diameter PLAX 2.9 cm IVS Diastolic Thickness 1.4 cm 0.6 - 1.0 / 0.6 - 0.9 cm IVS Systolic Thickness 2.0 cm LVPW Diastolic Thickness 1.5 cm 0.6 - 1.0 / 0.6 - 0.9 cm LVPW Systolic Thickness 1.8 cm LVOT Diameter 2.0 cm LV Ejection Fraction 2D Teich 53.6 % LV Ejection Fraction MOD 2C 50.1 % LV Ejection Fraction 2C AL 51.0 % LA Diameter 2.4 cm LA Width 4.0 cm LA Height 4.7 cm RA Width 4.0 cm RA Height 4.4 cm Aorta at Sinotubular Diameter 2.0 cm DOPPLER AV Peak Velocity 184.0 cm/s LVOT Peak Velocity 87.0 cm/s AV Area Cont Eq vti 1.6 cm squared AV Area Cont Eq pk 1.5 cm squared MV Area PHT 4.1 cm squared Mitral E to A Ratio 1.1 MV E' Velocity 57.0 cm/s Mitral E to MV E' Ratio 12.3 Mitral E to LV E' Lateral Ratio 10.5 Mitral E to LV E' Septal Ratio 15.0 TR Peak Velocity 274.0 cm/s TR Peak Gradient 30.0 mmHg TV Peak E Velocity 71.0 cm/s Right Atrial Pressure 8.0 mmHg Pulmonary Artery Systolic Pressu 38.0 mmHg PV Peak Velocity 113.0 cm/s RV Acceleration Time 0.1 s RV Ejection Time 0.3 s RV AcT/ET 0.5 FINDINGS Left Ventricle Normal left ventricular size and systolic function, EF 55 %. No regional wall motion abnormalities. Right Ventricle The right ventricle is normal in size and function. Right Atrium The right atrium is normal in size. Left Atrium Mildly increased left atrial size. Mitral Valve Thickened mitral valve. Mild mitral annular calcification. Aortic Valve Aortic valve sclerosis. Tricuspid Valve No gross abnormalities noted Pulmonic Valve Pulmonic valve not well visualized. Pericardium Normal pericardium without effusion. Aorta Normal ascending aorta dimension. CONCLUSIONS Normal left ventricular size and systolic function, EF 55 %. No regional wall motion abnormalities. Thickened mitral valve. Mild mitral annular calcification. Aortic valve sclerosis. There is no pericardial effusion. There are no intracardiac masses. No previous study is available for comparison. Dr Azael Ackerman MD [facility] (Electronically Signed) Final Date: 12 February 2021 20:11 S
--- NOTE | 2021-02-12 13:00 | CT_ITS ---
WS: [id number] CTA THORACIC TECHNIQUE: Contrast enhanced CTA of the thoracic aorta with coronal and sagittal reformatted images a nd maximum intensity projection (MIP) images. CLINICAL INFORMATION: I74.9 - Embolism and thrombosis of unspecified artery COMPARISON: DLP: 3461.[address] scans at [facility] use at least one of these dose optimization techniques: automated e xposure control; mA and/or kV adjustment per patient size (includes targeted exams where dose is matc hed to clinical indication); or iterative reconstruction. FINDINGS:Proximal main pulmonary arteries are normal. Segmental and subsegmental pulmonary arteries a ppear patent. Distal most pulmonary arteries not well evaluated. No evidence of pulmonary embolus.Sma ll noncalcified nodule left upper lobe measuring 4 mm unchanged since 2019. Lungs are well aerated. No acute pulmonary infiltrates. No focal pneumonia or pleural fluid. No media stinal or hilar lymphadenopathy. Calcified right hilar nodes. Hepatomegaly with diffuse cirrhotic configuration to the liver. Splenomegaly. Small esophageal hiatal hernia. Small left adrenal nodule likely adenoma. Right adrenal gland is normal. Cholecystectomy cli ps. Normal caliber thoracic aorta. A few prominent lymph nodes in the upper abdomen likely reactive. Mild thoracic kyphosis. Hypertrophic changes thoracic spine. CT/CT angio chest 13575 IMPRESSION: 1. Proximal main pulmonary arteries are normal. No evidence of pulmonary embol us. 2. Mild chronic emphysematous changes. No acute pulmonary infiltrates. 3. Small noncalcified nodule left upper lobe measuring 4 mm unchanged since 19. 4. Normal caliber thoracic aorta. 5. Hepatomegaly with cirrhotic configuration to the liver. Splenomegaly. 6. Partially visualized ventral abdominal wall hernia repair.
[2021-02-12] MEDS: iohexol 350 mg/mL 100 mL Btl IV ×2 (13:28)
== END 2021-02-12 12:40 | disposition home or self-care (01) ==
PROVIDERS: PCP Family Medicine; Visit Provider Internal Medicine Cardiovascular Disease
DX: R06.00 Dyspnea, unspecified (principal); R07.9 Chest pain, unspecified; I74.9 Embolism and thrombosis of unspecified artery; I70.0 Atherosclerosis of aorta; R91.1 Solitary pulmonary nodule; R16.2 Hepatomegaly with splenomegaly, not elsewhere classified
CPT/HCPCS: 71275; 93306

== ENCOUNTER 2021-03-03 07:13 | Outpatient (CLI) | payer MEDICARE, MEDICAID, SELFPAY ==
--- NOTE | 2021-03-03 07:15 | MM_ITS ---
WS: [id number] BILATERAL DIGITAL SCREENING MAMMOGRAPHY WITH CAD CLINICAL INFORMATION: SCREENING HISTORY: Screening mammogram. Left breast soreness. COMPARISON: February 10, 2017 TECHNIQUE: Bilateral CC and MLO views. FINDINGS: Scattered fibroglandular densities bilaterally. No suspicious focal mass, asymmetry, calcifications, or architectural distortion. No evidence of malignancy. A few tiny punctate calcifications. MM/[place] [address] IMPRESSION: BI-RADS: 2-Benign FOLLOW UP: 1 Year Follow-up Recommend return to annual screening mammography.
== END 2021-03-03 07:14 | disposition home or self-care (01) ==
LOC: RADSHAW 07:13
PROVIDERS: PCP Family Medicine; Visit Provider Family Medicine
DX: Z12.31 Encounter for screening mammogram for malignant neoplasm of breast (principal)
CPT/HCPCS: 77067

== ENCOUNTER → 2021-03-21 16:04 | Outpatient (BNVA) | payer MEDICARE, MEDICAID, SELFPAY | PROVIDERS: PCP Family Medicine; Visit Provider Surgery | DX: R10.9 Unspecified abdominal pain (principal); Z20.822 Contact with and (suspected) exposure to COVID-19 | CPT/HCPCS: 87635 ==

== ENCOUNTER 2021-03-26 08:09 | Day surgery (SDC) | payer MEDICARE, MEDICAID, SELFPAY ==
[2021-03-21 14:42] VITALS: BMI 53.6
--- NOTE | 2021-03-26 08:24 | ANES.PREANE2 ---
Pre-Anesthetic Assessment Pre-Anesthetic Assessment: Height/Weight: Height 1.55 m Weight 128.82 kg Preop Diagnosis: abdominal pain Proposed Procedure: Operation Date: 03/26/21 10:15 Proposed Procedures p EGD/colon 88850 32709 K21.9 K59.00(Not Applicable) - Holden Case MD s Colonoscopy(Not Applicable) - Holden Case MD Familial anesthetic complications: none > 8hrs Was Beta Mike taken within 24 hours: N/A Was Clonidine taken within 24 hours: N/A Last intake: > 8 hrs Social: Social History: No alcohol and No tobacco Exam: Pre-Anes Outpt Exam: alert, oriented x 3, clear to auscultation bilaterally and regular rate & rhythm Airway: MP: 2 Dentition: Chipped Pulmonary: Pulmonary: Sleep apnea and SOB CV/HEM: CV/HEM: Angina (Stable) and HTN Comments: Echo 2020 CONCLUSIONS Normal left ventricular size and systolic function, EF 55 %. No regional wall motion abnormalities. Thickened mitral valve. Mild mitral annular calcification. Aortic valve sclerosis. There is no pericardial effusion. There are no intracardiac masses. No previous study is available for comparison. Metabolic: Metabolic: DM and Morbid obesity Anesthetic Plan: ASA status: 3 Risk of > 500 ml blood loss (7ml/kg in children): No PFSH Anesthesia PFSH: Medical History Abdominal pain Chest pain Chronic back pain Diabetes Dysphagia Fibromyalgia Hiatal hernia History of mammogram (~2016) normal Hypertension Recurrent UTI Sciatica Shortness of breath Sleep apnea with use of continuous positive airway pressure (CPAP) Surgical History History of colonoscopy (~2016) History of laparoscopic cholecystectomy History of removal of cyst RENAL History of total abdominal hysterectomy and bilateral salpingo-oophorectomy Hx of appendectomy Hx of hysterectomy Family History Mother Diabetes Father No problems noted. Denies family history of Colon cancer Ovarian cancer Heart disease Hypercholesteremia Breast cancer Uterine cancer Thyroid disease Social History Smoking and tobacco status: never smoked Second hand smoke exposure: No Alcohol intake: never Additional social history: - Tobacco use: Never Alcohol use: denies Drug use: denies Data Anesthesia Cardiac Studies: Echocardiogram 02/12/21
[2021-03-26 09:01] VITALS: BP 154/68; PULSE 80; RESP 20; TEMP 36.4; O2SAT 97
[2021-03-26] MEDS: sodium chloride 0.9% 1,000 ML 30 ML IV (09:25)
--- NOTE | 2021-03-26 09:35 | W.PM.OPSFHP ---
Same Day Surgery H&P Indication for Procedure/HPI DATE OF PROCEDURE: March 26, 2021 CHIEF COMPLAINT/INDICATIONFOR SURGICAL PROCEDURE: Abdominal pain PREOP DIAGNOSIS: Abdominal pain PLANNED PROCEDRUE: Operation Date: 03/26/21 10:15 Proposed Procedures p EGD/colon 70753 [id number] K21.9 K59.00(Not Applicable) - Holden Case MD s Colonoscopy(Not Applicable) - Holden Case MD 07/06/2019 This is 68 years old morbidly obese patient with multiple medical comorbidities and broad spectrum of complaints including bloating, choking, vague abdominal pain diffuse in nature nothing seems to make it better or worse, and is not being referred, back in January 2017 patient was referred to me for surveillance colonoscopy and for unclear reason she never had a prep and she never showed up, she has been worked up this time in the form of CT scan of the chest abdomen and pelvis that showed; 05/05/19 1. Prior cholecystectomy. 2. No pneumonia or pulmonary mass. 3. LEFT adrenal nodule is probably an adenoma with no history of malignancy. 4. Prior ventral abdominal wall hernia repair. Patient denies any bleeding per rectum Interim history 01/30/2021 Patient comes today as it has been a while since I have seen her in my practice as last time she was seen and evaluated with the plan to perform a diagnostic EGD and colonoscopy because of her abdominal pain that never took place for unclear reason my patient continues to have vague and diffuse abdominal pain with complaints of weight gain and her weight now is 271 pounds with a BMI of 51.2. She undergone recent CT scan of the abdomen pelvis that did show 1. Hepatomegaly with diffuse fatty infiltration of the liver. Slight cirrhotic contour to the liver unchanged 2018. Correlate with liver function tests. Splenomegaly. 2. Prior cholecystectomy and hysterectomy. 3. Prior ventral abdominal wall hernia repair. 4. Normal sigmoid colon. A few sigmoid diverticuli. No evidence of acute diverticulitis. 5. Stable 12 mm left adrenal adenoma. 6. No acute abdominal or pelvic findings. Patient reports to me that she has a hernia of the left lower abdomen. And she is not aware of any hernia surgery that had before. Which based on the CT scan there are evidence of hernia repair and mesh placement in addition to tacks hernia fixation. Per my interpretation. Interim history 03/26/2021. Patient comes today for diagnostic EGD and colonoscopy ROS All systems have been reviewed negative except as per the above or per problem list Medications/Allergies* Home Medications Medication Instructions Recorded Confirmed Type buspirone 15 mg tablet 15 mg PO BID tab 06/16/19 03/26/21 History cyclobenzaprine 10 mg tablet 10 mg PO TID 06/16/19 03/26/21 History hydrocodone 10 mg-acetaminophen 1 tab PO Q6H PRN 06/16/19 03/26/21 History 325 mg tablet hydroxyzine HCl 25 mg tablet 25 mg PO ONCE PRN tab 06/16/19 03/26/21 History ibuprofen 800 mg tablet 800 mg PO Q8H 06/16/19 03/26/21 History insulin glargine 100 unit/mL (3 45 unit SUBCUT .evening ml 06/16/19 03/26/21 History mL) subcutaneous pen insulin glargine 100 unit/mL (3 55 unit SUBCUT DAILY 06/16/19 03/26/21 History mL) subcutaneous pen omeprazole 20 mg tablet,delayed 20 mg PO BID 06/16/19 03/26/21 History release tolterodine 2 mg tablet 2 mg PO DAILY 06/16/19 03/26/21 History aspirin 81 mg PO DAILY 10/22/19 03/26/21 History gabapentin 300 mg capsule 300 mg PO TID PRN cap 06/04/20 03/26/21 History clonazepam 1 mg tablet 1 mg PO BID 01/09/21 03/26/21 History lisinopril 20 mg tablet 20 mg PO DAILY 01/09/21 03/26/21 History metformin 1,000 mg tablet 500 mg PO BID tab 01/09/21 03/26/21 History Allergies/Adverse Reactions Allergy/AdvReac Type Severity Reaction Status Date / Time codeine Allergy Unknown ALGY-Difficulty Verified 03/26/21 10:05 Breathing adhesive tape Allergy ALGY-Rash Verified 03/26/21 10:05 contact metal agent Allergy ALGY-Rash Verified 03/26/21 10:05 trimethoprim [From Bactrim] AdvReac Severe ADR-Itching Verified 03/26/21 10:05 sulfamethoxazole AdvReac Unknown ADR-Itching Verified 03/26/21 10:05 [From Bactrim] Current Medications: Generic Name Dose Route Start Last Admin Trade Name Freq PRN Reason Stop Dose Admin Sodium Chloride 1,000 mls @ 30 mls/hr 03/26/21 08:30 03/26/21 09:25 Sodium Chloride 0.9% IV 03/27/21 08:29 30 mls/hr .Q24H CHIDI Administration Pertinent History/Comorbid Conditions* Medical History (Updated 02/01/21 @ 09:18 by Holden Case MD) Abdominal pain Chest pain Chronic back pain Diabetes Dysphagia Fibromyalgia Hiatal hernia History of mammogram (~2016) normal Hypertension Recurrent UTI Sciatica Shortness of breath Sleep apnea with use of continuous positive airway pressure (CPAP) Surgical History (Updated 06/07/20 @ 19:03 by Kelli Cutler MD) History of colonoscopy (~2016) History of laparoscopic cholecystectomy History of removal of cyst RENAL History of total abdominal hysterectomy and bilateral salpingo-oophorectomy Hx of appendectomy Hx of hysterectomy Family History (Updated 05/30/20 @ 10:56 by Mesha Ortega) Diabetes Mother Denies family history of Colon cancer Ovarian cancer Heart disease Hypercholesteremia Breast cancer Uterine cancer Thyroid disease Social History Smoking and tobacco status: never smoked Second hand smoke exposure: No Alcohol intake: never Additional social history: - Tobacco use: Never Alcohol use: denies Drug use: denies Pertinent Exam Findings alert, oriented x 3 and procedure specific exam findings (Abdominal examination mildly tender towards the left side otherwise soft ) Morbidly obese Recommendations Surgery/Procedure today (EGD and colonoscopy with possible biopsy) Other Plans: Plan of care; After thorough history and physical examination and reviewing the chart, plan to perform a diagnostic esophagogastroduodenoscopy and diagnostic colonoscopy with possible biopsy and possible polypectomy. I discussed with the patient in detail the risks,benefits,alternatives and indications.The risk of aspiration, bleeding, soft tissue injury, perforation of the stomach/esophagus/colon and other potential concomitant complications were explained to the patient in details also the potential need for Thoracotomy and or Laproscoy/Laparotomy to repair any related complications including but not limited to colectomy and or Closotomy. The patient understood this well and did agree to proceed. Rationale was carefully and clearly discussed with the patient.Appropriate informed consent have been reviewed and signed Verbal and written Instructions were given to the patient for colonoscopy prep Coding Level of Care Code Acute Middleware Solutions Architect for g Germain
[2021-03-26 11:04] LABS: Glucose Point of Care 93 mg/dL (70-110)
--- NOTE | 2021-03-26 11:13 | PC.NURSE ---
Polyp removed during procedure but was not retrieved. Information passed along to post op nurse Regine Singh RN.
[2021-03-26 11:20] VITALS: BP 107/61; PULSE 80; RESP 18; TEMP 36.2; O2SAT 94
[2021-03-26 11:44] VITALS: BP 111/50; PULSE 76; RESP 16; O2SAT 95
--- NOTE | 2021-03-26 14:31 | ANE.PACU2 ---
Inpatient post-anesthesia follow up: Airway intact: Yes Vital signs: Temperature 97.2 F Pulse Rate 76 Respiratory Rate 16 Blood Pressure 111/50 Pulse Oximetry 95 Oxygen Delivery Me thod Room Air Oxygen Flow Rate Fraction of Inspir ed Oxygen Hydration adequate: Yes Nausea and vomiting: No Pain level: 1 Mental status: Baseline
[2021-03-27 07:54] LABS: H. Pylori / CLO Test Negative
== END 2021-03-26 12:24 | disposition home or self-care (01) ==
PROVIDERS: PCP Family Medicine; Visit Provider Surgery
PROC: 0DJ08ZZ Inspection of Upper Intestinal Tract, Via Natural or Artificial Opening Endoscopic (ICD-10-PCS; CPT 43235; principal; 2021-03-26 10:15)
PROC: 0DJD8ZZ Inspection of Lower Intestinal Tract, Via Natural or Artificial Opening Endoscopic (ICD-10-PCS; CPT 45378; 2021-03-26 10:15)
DX: R10.9 Unspecified abdominal pain (principal); D12.2 Benign neoplasm of ascending colon; I85.00 Esophageal varices without bleeding; K21.00 Gastro-esophageal reflux disease with esophagitis, without bleeding; K29.70 Gastritis, unspecified, without bleeding; K57.30 Diverticulosis of large intestine without perforation or abscess without bleeding; E11.9 Type 2 diabetes mellitus without complications; G47.30 Sleep apnea, unspecified; M79.7 Fibromyalgia; I10 Essential (primary) hypertension; E66.01 Morbid (severe) obesity due to excess calories; Z68.43 Body mass index [BMI] 50.0-59.9, adult; Z79.4 Long term (current) use of insulin; Z79.82 Long term (current) use of aspirin; Z79.84 Long term (current) use of oral hypoglycemic drugs; Z79.899 Other long term (current) drug therapy
CPT/HCPCS: 36416; 43239; 45385; 82962; 87077; 96360; 96361; J2704; J7030

== ENCOUNTER 2021-05-27 08:53 | Outpatient (CLI) | payer OTHER, MEDICAID, SELFPAY ==
[2021-05-27 09:21] VITALS: BMI 53.6
--- NOTE | 2021-05-27 09:24 | ECG_ITS ---
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 Interpretive Statements NAME OF STUDY: LEXISCAN SESTAMIBI STRESS TEST INDICATION: Chest Pain, PROCEDURE: At the baseline, the EKG revealed sinus rhythm with incomplete right bundle branch block pattern. Left axis deviation. Nonspecific ST-T changes. The baseline blood pressure was 111/52 mm Hg with a heart rate of 66 beats/min. Lexiscan was infused over a period of 20 seconds. A total of 0.4 milligrams of Lexiscan was infused. The stress phase was continued for a total of 5 minutes. Heart rate at the end of the stress phase was 77 with a blood pressure 110/64. The EKG at the peak infusion revealed no significant changes. Sestamibi was injected 20 seconds after the Lexiscan infusion. Blood pressure at the end of the recovery phase was 115/67 with a heart rate of 77 per minute. CONCLUSION: 1. No significant EKG changes with the LexiScan infusion 2. No LexiScan induced chest pain or cardiac arrhythmia 3. Normal blood pressure and heart rate response 4. Sestamibi/sestamibi perfusion scan pending; see separate report. Electronically Signed On 05-29-2021 0:18:59 SCALER by Azael Ackerman M.D. [id number]
--- NOTE | 2021-05-27 09:25 | NMCV_ITS ---
NM sarina perf SPECT r/s* [id number] Irma Rene Age: 70 Gender: F : 1950 Exam Date: 05/27/2021 09:25 Ordering Phys: Azael Ackerman MD ([email or web address]) Technologist: LEONID Monge Exam Location: [facility] Indications: CHEST PAIN STRESS TEST [facility] IMAGE PROTOCOL Rest/Stress 1 Lexiscan Day Radiopharmaceutical Dose (mCi) Administration Site Administered by Rest: Tc-99m 10.7 IV LEONID Monge Sestamibi Stress:Tc-99m 33.0 IV LEONID Moreno Sestamibi Rest: 27-May-2021 60 Discovery 630 Stress: 27-May-2021 30 Discovery 630 0.4mg Lexiscan. Supine position only as patient was unable to lay prone. SPECT RESULTS Technical Quality: Good Raw Data Analysis: Normal Image Corrections: No attenuation or motion correction applied Summed Stress Score: 2 Summed Rest Score: 0 Summed Difference Score: 2 PERFUSION FINDINGS Small area of slightly decreased tracer uptake was noted in the mid and apical inferior wall region. Complete reversibility was noted in this region at rest. FUNCTIONAL RESULTS (calculated via Gated SPECT) Stress Image LV EF (%): 69 Stress EDV (mL):96 TID: 0.95 Stress ESV (mL):30 FUNCTIONAL FINDINGS: Segmental wall motion analysis revealing no gross wall motion normalities. IMPRESSIONS 1. A small area of reversibility within the mid and apical inferior wall region, suggestive of ischemia in the distribution of the right coronary artery. However in the polar map, there was no significant perfusion defect. The reliability of this finding is questionable. 2. Normal LV ejection fraction of 69%. 3. LV wall motion analysis revealing no gross wall motion normalities. 4. Normal LV volume No similar previous studies are available for comparison Dr Azael Ackerman MD [facility] (Electronically Signed) Final Date: 27 May 2021 18:40 S
[2021-05-27] MEDS: regadenoson 0.4 Mg/5 ml Syringe IVP (11:12)
[2021-05-27 11:17] VITALS: BP 115/67; PULSE 77
== END 2021-05-27 08:54 | disposition home or self-care (01) ==
LOC: CDL 08:57
PROVIDERS: PCP Family Medicine; Visit Provider Internal Medicine Cardiovascular Disease
DX: R07.9 Chest pain, unspecified (principal); R06.02 Shortness of breath
CPT/HCPCS: 78452; 93017; A9500; J2785

== ENCOUNTER 2022-03-18 14:35 | Emergency (ER) | payer MEDICARE, MEDICAID, SELFPAY ==
[2022-03-18 15:05] VITALS: BP 141/80; PULSE 96; RESP 15; TEMP 36.7; O2SAT 95; BMI 53.2
[2022-03-18 15:09] VITALS: BP 138/78; PULSE 90; RESP 16; TEMP 36.7; O2SAT 95
[2022-03-18 16:19] LABS: Basophils % 0.1 %; Eosinophils # 0.1 10^3/uL (0.0-0.8); Eosinophils % 1.3 %; Hematocrit 37.4 % (37.0-47.0); Hemoglobin 12.3 g/dL (11.5-15.3); Lymphocytes # 1.4 10^3/uL (0.8-4.8); Lymphocytes % 18.1 %; Mean Corpuscular HGB Conc 32.9 g/dL (30.0-36.0); Mean Corpuscular Hemoglobin 29.1 pg (28.0-34.0); Mean Corpuscular Volume 88.6 fl (81-99); Mean Platelet Volume 9.7 fL (7.4-10.4); Monocytes # 0.5 10^3/uL (0.2-0.9); Monocytes % 5.9 %; Neutrophils # 5.75 10^3/uL (1.8-7.7); Neutrophils % 74.3 %; Nucleated Red Blood Cells % 0 %; Platelet Count 123 10^3/cmm (130-400); Red Blood Count 4.22 10^6/uL (4.1-5.3); White Blood Count 7.7 10^3/uL (4.0-10.0)
--- NOTE | 2022-03-18 16:23 | ED_ITS ---
Documented by User: Humphrey Velasquez DO 03/31/22 15:35 HPI - Abdominal Pain General: Chief Complaint: Abdominal Pain Stated Complaint: abd pain Time Seen by Provider: 03/18/22 16:16 Source: patient Mode of arrival: ambulatory History of Present Illness: 71-year-old female presents emergency room with complaint of being unable to have a bowel movement. She has not a bowel movement last 2 days she tried several enemas at home feels like she cannot void or urinate she was able to urinate 200 mL urine had a small amount of stool shortly after arrival here no fever sweats chills no hematochezia melena hematemesis or coffee-ground emesis. MD elicited complaint: abdominal pain Pertinent past history: constipation Pain Consistency: intermittent Location: Diffuse Severity: mild Quality: cramping Exacerbating factors: nothing Relieving factors: nothing Associated Symptoms: Reports bloating, change in bowel habits, constipation, GI cramping, nausea and poor appetite; Denies anorexia, belching, change in stool character, chills, coffee ground emesis, diarrhea, dyspepsia, dysuria, excessive flatus, fever(s), heartburn, hematochezia, hematuria, hematemesis, fecal incontinence, loose stools, melena, syncope and vomiting Review of Systems Const: Denies: fever(s) or chills ENMT: Denies: throat pain, ear or mastoid pain, nasal discharge or nasal congestion Card: Denies: chest pain, palpitations, irregular heart rhythm or syncope Resp: Denies: dyspnea, productive cough or non-productive cough GI: Reports: abdominal pain, nausea, constipation, bloating, GI cramping and change in bowel habits; Denies: vomiting, hematemesis, coffee ground emesis, heartburn, early satiety, diarrhea, belching, excessive flatus, fecal incontinence, change in stool character, hematochezia or melena : Denies: flank pain, difficulty voiding, dysuria, urinary frequency or hematuria Skin/Breast: Denies: rash or pruritus PFSH ED PFSH: Medical History Abdominal pain Chest pain Chronic back pain Chronic joint pain Diabetes Dysphagia Fibromyalgia Hiatal hernia History of mammogram (~2016) normal Hypertension Recurrent UTI Sciatica Shortness of breath Sleep apnea with use of continuous positive airway pressure (CPAP) Surgical History History of colonoscopy (~2017) History of laparoscopic cholecystectomy History of removal of cyst RENAL History of total abdominal hysterectomy and bilateral salpingo-oophorectomy Hx of appendectomy Hx of hysterectomy Family History Mother Diabetes Father No problems noted. Denies family history of Colon cancer Ovarian cancer Heart disease Hypercholesteremia Breast cancer Uterine cancer Thyroid disease Social History Smoking and tobacco status: never smoked Second hand smoke exposure: No Alcohol intake: never Additional social history: - Tobacco use: Never Alcohol use: denies Drug use: denies Physical Exam Const: COMMON NORMALS: no acute distress GENERAL APPEARANCE: cooperative and comfortable ORIENTATION/CONSCIOUSNESS: Yes awake, Yes oriented to person, Yes oriented to place and Yes oriented to time HENMT: COMMON NORMALS: normocephalic, atraumatic, hearing grossly normal bilaterally, external ears normal, EAC's normal, TM's normal bilaterally, Normal nasal mucous membranes and turbinates present, moist oral mucous membranes and oropharynx normal HEAD & SCALP: normocephalic and atraumatic NOSE: Normal nasal mucous membranes and turbinates present EXTERNAL EAR: Yes external ears normal EXTERNAL AUDITORY CANAL: EAC's normal TYMPANIC MEMBRANE: TM's normal bilaterally Eye: COMMON NORMALS: Equal, round and reactive pupils present, EOMs intact bilaterally, conjunctivae normal and no scleral icterus CONJUNCTIVA: Yes conjunctivae normal PUPIL: Yes Equal, round and reactive pupils present Neck/C-Spine: COMMON NORMALS: full ROM, no lymphadenopathy, supple and no JVD Lymph: LYMPHATIC: no lymphadenopathy noted and no lymphedema noted Resp: COMMON NORMALS: normal respiratory effort, No retractions, No use of accessory muscles and clear to auscultation bilaterally AUSCULTATION: clear to auscultation bilaterally Cardio: COMMON NORMALS: no JVD, regular rate, regular rhythm and No murmurs present (Cardio) RATE: regular rate RHYTHM: regular rhythm GI: COMMON NORMALS: Soft to palpation and No hepatosplenomegaly present AUSCULTATION: Yes normoactive bowel sounds PALPATION: Yes Soft to palpation, No Tenderness to palpation present (GI), No Guarding due to palpation present (GI) and Yes No hepatosplenomegaly present Extremity: COMMON NORMALS: normal to inspection, capillary refill normal, no clubbing, cyanosis or edema, no calf tenderness and no pedal edema Neuro: SENSORIUM/ORIENTATION: Yes oriented to person, Yes oriented to place and Yes oriented to time Skin: COMMON NORMALS: no rashes or lesions noted GENERAL SKIN EXAM: no rashes or lesions noted Course Vital Signs: Vital signs: Vital Signs Temperature 98.0 F 03/18/22 17:39 Pulse Rate 81 03/18/22 19:45 Respiratory Rate 16 03/18/22 19:45 Blood Pressure 132/75 03/18/22 19:45 Pulse Oximetry 97 03/18/22 19:45 Oxygen Delivery Me thod 03/18/22 17:39 MDM - Abdominal Pain Medical Decision Making Care signed out to Dr. Vasquez at change of shift. See final notes for diagnosis and disposition. Patient presents here with abdominal pain likely from constipation blood work here is all normal she has no signs of acute abdomen we will give her lactulose here and prescribe her MiraLAX she is to follow-up with PCP and return if worsening she understands agrees to plan. Medical Records I reviewed the patient's medical records. Lab Data I reviewed the patient's lab results. : 03/18/22 16:07 03/18/22 16:07 Labs/Radiology: Radiology Impressions KUB X-Ray 03/18/22 17:27 IMPRESSION: No acute findings. Laboratory Results WBC 7.7 10^3/uL (4.0-10.0) 03/18/22 16:07 RBC 4.22 10^6/uL (4.1-5.3) 03/18/22 16:07 Hgb 12.3 g/dL (11.5-15.3) 03/18/22 16:07 Hct 37.4 % (37.0-47.0) 03/18/22 16:07 MCV 88.6 fl (81-99) 03/18/22 16:07 MCH 29.1 pg (28.0-34.0) 03/18/22 16:07 MCHC 32.9 g/dL (30.0-36.0) 03/18/22 16:07 RDW 13.0 % (12.1-15.1) 03/18/22 16:07 Plt Count 123 10^3/cmm (130-400) L 03/18/22 16:07 MPV 9.7 fL (7.4-10.4) 03/18/22 16:07 Neut % (Auto) 74.3 % 03/18/22 16:07 Lymph % (Auto) 18.1 % 03/18/22 16:07 [place] % (Auto) 5.9 % 03/18/22 16:07 Eos % (Auto) 1.3 % 03/18/22 16:07 Baso % (Auto) 0.1 % 03/18/22 16:07 Neut # (Auto) 5.75 10^3/uL (1.8-7.7) 03/18/22 16:07 Lymph # (Auto) 1.4 10^3/uL (0.8-4.8) 03/18/22 16:07 [place] # (Auto) 0.5 10^3/uL (0.2-0.9) 03/18/22 16:07 Eos # (Auto) 0.1 10^3/uL (0.0-0.8) 03/18/22 16:07 Baso # (Auto) 0.0 10^3/uL (0.0-0.1) 03/18/22 16:07 Nucleated RBC % (auto) 0 % 03/18/22 16:07 Nucleated RBCs # 0.0 /100WBC 03/18/22 16:07 Sodium 133 mmol/L (136-145) L 03/18/22 16:07 Potassium 4.4 mmol/L (3.5-5.1) 03/18/22 16:07 Chloride 99 mmol/L (98-107) 03/18/22 16:07 Carbon Dioxide 23 mmol/L (22-29) 03/18/22 16:07 Anion Gap 15.4 (5-19) 03/18/22 16:07 BUN 12 mg/dL (8-23) 03/18/22 16:07 Creatinine 0.4 mg/dL (0.5-0.9) L 03/18/22 16:07 GFR Calculation Not Reportable 03/18/22 16:07 Glucose 192 mg/dL (65-115) H 03/18/22 16:07 Calculated Osmolality 281 mOsm/kg (285-295) L 03/18/22 16:07 Lactic Acid 1.6 mmol/L (0.5-2.2) 03/18/22 16:07 Calcium 9.1 mg/dL (8.5-10.5) 03/18/22 16:07 Total Bilirubin 0.4 mg/dL (0.15-1.2) 03/18/22 16:07 AST 30 U/L (0-32) 03/18/22 16:07 ALT 26 U/L (0-33) 03/18/22 16:07 Alkaline Phosphatase 94 U/L (35-105) 03/18/22 16:07 Total Protein 6.8 g/dL (6.6-8.7) 03/18/22 16:07 Albumin 3.1 g/dL (3.5-5.2) L 03/18/22 16:07 Globulin 3.7 g/dL (1.3-4.6) 03/18/22 16:07 Lipase 14 U/L (13-60) 03/18/22 16:07 Discharge Plan Discharge Patient Disposition: Home Clinical Impression: Constipation, Abdominal pain Condition: Stable Prescriptions: New Miralax 17 gram powder in packet 17 g PO DAILY PRN (Reason: constipation) Qty: 14 0RF No Action ibuprofen 800 mg tablet 800 mg PO Q8H PRN (Reason: Pain) Hold Instructions: Resume on 04/01/21. buspirone 15 mg tablet 15 mg PO BID hydroxyzine HCl 25 mg tablet 25 mg PO DAILY PRN (Reason: Anxiety) omeprazole 20 mg tablet,delayed release (DR/EC) 20 mg PO BID tolterodine [Detrol] 2 mg tablet 2 mg PO DAILY (DME) pen needle, diabetic [BD Melony 2nd Gen Pen Needle] 32 gauge x /32 needle See Rx Instructions .ROUTE .MEDSUPPLY Qty: 50 3RF Rx Instructions: As directed lisinopril 20 mg tablet 20 mg PO DAILY metformin 1,000 mg tablet 500 mg PO BID clonazepam 1 mg tablet 1 mg PO BID insulin glargine [Lantus Solostar U-100 Insulin] 100 unit/mL (3 mL) insulin pen 55 unit SUBCUT DAILY Qty: 15 12RF Rx Instructions: TAKE IN THE MORNING cyclobenzaprine 10 mg tablet 10 mg PO TID PRN (Reason: muscle spasm) Qty: 90 0RF (DME) lancets [Accu-Chek Softclix Lancets] Misc See Rx Instructions .Route Qty: 100 11RF Rx Instructions: As directed (DME) Accu-Chek Guide test strips Strip See Rx Instructions .Route Qty: 100 5RF Rx Instructions: As directed hydrocodone-acetaminophen 10-325 mg tablet 1 tab PO Q6H PRN (Reason: pain) 30 Days Qty: 120 0RF Rx Instructions: take 1-2 tabs PO every six hours as needed aspirin 81 mg Tablet,Delayed Release (Dr/Ec) 81 mg PO DAILY Hold Instructions: Resume on 03/31/21. albuterol sulfate 90 mcg/actuation HFA aerosol inhaler 2 inh INHALATION Q4H PRN (Reason: shortness of breath or wheezing) Qty: 18 0RF gabapentin 300 mg capsule 300 mg PO TID PRN (Reason: Pain) vitamin E 268 mg (400 unit) Capsule 268 mg PO DAILY Vitamin C 500 mg Tablet Extended Release 500 mg PO DAILY Lantus Solostar U-100 Insulin 100 unit/mL (3 mL) insulin pen 55 unit SUBCUT QPM Discharge Orders: Discharge ED (Routine); Ordered 03/18/22 Ordered By: Navin Vasquez Referrals: Jose Ivan MD [Primary Care Provider] - Discharge Diet: Advance as tolerated Discharge Activity: Resume usual activity Patient Instructions: Constipation (ED), Abdominal Pain (ED) Coding Level of Care Code ED Chemical Dependency Counselor for Chg Fwd Documented by User: Navin Vasquez MD 03/18/22 18:59 HPI - Abdominal Pain General: Chief Complaint: Abdominal Pain Stated Complaint: abd pain Time Seen by Provider: 03/18/22 16:16 PFSH ED PFSH: Medical History Abdominal pain Chest pain Chronic back pain Chronic joint pain Diabetes Dysphagia Fibromyalgia Hiatal hernia History of mammogram (~2017) normal Hypertension Recurrent UTI Sciatica Shortness of breath Sleep apnea with use of continuous positive airway pressure (CPAP) Surgical History History of colonoscopy (~2017) History of laparoscopic cholecystectomy History of removal of cyst RENAL History of total abdominal hysterectomy and bilateral salpingo-oophorectomy Hx of appendectomy Hx of hysterectomy Family History Mother Diabetes Father No problems noted. Denies family history of Colon cancer Ovarian cancer Heart disease Hypercholesteremia Breast cancer Uterine cancer Thyroid disease Social History Smoking and tobacco status: never smoked Second hand smoke exposure: No Alcohol intake: never Additional social history: - Tobacco use: Never Alcohol use: denies Drug use: denies Course Vital Signs: Vital signs: Vital Signs Temperature 98.0 F 03/18/22 17:39 Pulse Rate 81 03/18/22 19:45 Respiratory Rate 16 03/18/22 19:45 Blood Pressure 132/75 03/18/22 19:45 Pulse Oximetry 97 03/18/22 19:45 Oxygen Delivery Me thod 03/18/22 17:39 MDM - Abdominal Pain Medical Decision Making Patient presents here with abdominal pain likely from constipation blood work here is all normal she has no signs of acute abdomen we will give her lactulose here and prescribe her MiraLAX she is to follow-up with PCP and return if worsening she understands agrees to plan. Lab Data : 03/18/22 16:07 03/18/22 16:07 Labs/Radiology: Radiology Impressions KUB X-Ray 03/18/22 17:27 IMPRESSION: No acute findings. Laboratory Results WBC 7.7 10^3/uL (4.0-10.0) 03/18/22 16:07 RBC 4.22 10^6/uL (4.1-5.3) 03/18/22 16:07 Hgb 12.3 g/dL (11.5-15.3) 03/18/22 16:07 Hct 37.4 % (37.0-47.0) 03/18/22 16:07 MCV 88.6 fl (81-99) 03/18/22 16:07 MCH 29.1 pg (28.0-34.0) 03/18/22 16:07 MCHC 32.9 g/dL (30.0-36.0) 03/18/22 16:07 RDW 13.0 % (12.1-15.1) 03/18/22 16:07 Plt Count 123 10^3/cmm (130-400) L 03/18/22 16:07 MPV 9.7 fL (7.4-10.4) 03/18/22 16:07 Neut % (Auto) 74.3 % 03/18/22 16:07 Lymph % (Auto) 18.1 % 03/18/22 16:07 [place] % (Auto) 5.9 % 03/18/22 16:07 Eos % (Auto) 1.3 % 03/18/22 16:07 Baso % (Auto) 0.1 % 03/18/22 16:07 Neut # (Auto) 5.75 10^3/uL (1.8-7.7) 03/18/22 16:07 Lymph # (Auto) 1.4 10^3/uL (0.8-4.8) 03/18/22 16:07 [place] # (Auto) 0.5 10^3/uL (0.2-0.9) 03/18/22 16:07 Eos # (Auto) 0.1 10^3/uL (0.0-0.8) 03/18/22 16:07 Baso # (Auto) 0.0 10^3/uL (0.0-0.1) 03/18/22 16:07 Nucleated RBC % (auto) 0 % 03/18/22 16:07 Nucleated RBCs # 0.0 /100WBC 03/18/22 16:07 Sodium 133 mmol/L (136-145) L 03/18/22 16:07 Potassium 4.4 mmol/L (3.5-5.1) 03/18/22 16:07 Chloride 99 mmol/L (98-107) 03/18/22 16:07 Carbon Dioxide 23 mmol/L (22-29) 03/18/22 16:07 Anion Gap 15.4 (5-19) 03/18/22 16:07 BUN 12 mg/dL (8-23) 03/18/22 16:07 Creatinine 0.4 mg/dL (0.5-0.9) L 03/18/22 16:07 GFR Calculation Not Reportable 03/18/22 16:07 Glucose 192 mg/dL (65-115) H 03/18/22 16:07 Calculated Osmolality 281 mOsm/kg (285-295) L 03/18/22 16:07 Lactic Acid 1.6 mmol/L (0.5-2.2) 03/18/22 16:07 Calcium 9.1 mg/dL (8.5-10.5) 03/18/22 16:07 Total Bilirubin 0.4 mg/dL (0.15-1.2) 03/18/22 16:07 AST 30 U/L (0-32) 03/18/22 16:07 ALT 26 U/L (0-33) 03/18/22 16:07 Alkaline Phosphatase 94 U/L (35-105) 03/18/22 16:07 Total Protein 6.8 g/dL (6.6-8.7) 03/18/22 16:07 Albumin 3.1 g/dL (3.5-5.2) L 03/18/22 16:07 Globulin 3.7 g/dL (1.3-4.6) 03/18/22 16:07 Lipase 14 U/L (13-60) 03/18/22 16:07 Discharge Plan Discharge Patient Disposition: Home Clinical Impression: Constipation, Abdominal pain Condition: Stable Prescriptions: New Miralax 17 gram powder in packet 17 g PO DAILY PRN (Reason: constipation) Qty: 14 0RF No Action ibuprofen 800 mg tablet 800 mg PO Q8H PRN (Reason: Pain) Hold Instructions: Resume on 04/01/21. buspirone 15 mg tablet 15 mg PO BID hydroxyzine HCl 25 mg tablet 25 mg PO DAILY PRN (Reason: Anxiety) omeprazole 20 mg tablet,delayed release (DR/EC) 20 mg PO BID tolterodine [Detrol] 2 mg tablet 2 mg PO DAILY (DME) pen needle, diabetic [BD Melony 2nd Gen Pen Needle] 32 gauge x needle See Rx Instructions .ROUTE .MEDSUPPLY Qty: 50 3RF Rx Instructions: As directed lisinopril 20 mg tablet 20 mg PO DAILY metformin 1,000 mg tablet 500 mg PO BID clonazepam 1 mg tablet 1 mg PO BID insulin glargine [Lantus Solostar U-100 Insulin] 100 unit/mL (3 mL) insulin pen 55 unit SUBCUT DAILY Qty: 15 12RF Rx Instructions: TAKE IN THE MORNING cyclobenzaprine 10 mg tablet 10 mg PO TID PRN (Reason: muscle spasm) Qty: 90 0RF (DME) lancets [Accu-Chek Softclix Lancets] Misc See Rx Instructions .Route Qty: 100 11RF Rx Instructions: As directed (DME) Accu-Chek Guide test strips Strip See Rx Instructions .Route Qty: 100 5RF Rx Instructions: As directed hydrocodone-acetaminophen 10-325 mg tablet 1 tab PO Q6H PRN (Reason: pain) 30 Days Qty: 120 0RF Rx Instructions: take 1-2 tabs PO every six hours as needed aspirin 81 mg Tablet,Delayed Release (Dr/Ec) 81 mg PO DAILY Hold Instructions: Resume on 03/31/21. albuterol sulfate 90 mcg/actuation HFA aerosol inhaler 2 inh INHALATION Q4H PRN (Reason: shortness of breath or wheezing) Qty: 18 0RF gabapentin 300 mg capsule 300 mg PO TID PRN (Reason: Pain) vitamin E 268 mg (400 unit) Capsule 268 mg PO DAILY Vitamin C 500 mg Tablet Extended Release 500 mg PO DAILY Lantus Solostar U-100 Insulin 100 unit/mL (3 mL) insulin pen 55 unit SUBCUT QPM Discharge Orders: Discharge ED (Routine); Ordered 03/18/22 Ordered By: Navin Vasquez Referrals: Jose Ivan MD [Primary Care Provider] - Discharge Diet: Advance as tolerated Discharge Activity: Resume usual activity Patient Instructions: Constipation (ED), Abdominal Pain (ED) Coding Level of Care Code ED Chemical Dependency Counselor for [place]shid [place]
[2022-03-18 16:57] LABS: Lactic Sepsis W/Reflex 1.6 mmol/L (0.5-2.2)
--- NOTE | 2022-03-18 17:27 | XRR_ITS ---
PROCEDURE INFORMATION: Exam: XR Abdomen Exam date and time: 03/18/2022 6:05 PM Age: 71 years old Clinical indication: Abdominal pain; Acute; Prior surgery; Surgery date: 6+ months; Additional info: Abd pain TECHNIQUE: Imaging protocol: Radiologic exam of the abdomen. Views: Frontal supine view of the abdomen. 1 View. COMPARISON: CT abdomen pelvis w con* [id number] 11/18/2020 8:56 AM FINDINGS: Gastrointestinal tract: Normal. No bowel dilation. Bones/joints: Unremarkable. XR/XR KUB portable [id number] IMPRESSION: No acute findings.
[2022-03-18 17:39] VITALS: BP 132/80; PULSE 86; RESP 16; TEMP 36.7; O2SAT 95
[2022-03-18 17:53] LABS: Alanine Aminotransferase 26 U/L (0-33); Albumin Level 3.1 g/dL (3.5-5.2); Alkaline Phosphatase 94 U/L (35-105); Anion Gap 15.4 (5-19); Aspartate Amino Transferase 30 U/L (0-32); Blood Urea Nitrogen 12 mg/dL (8-23); Calcium 9.1 mg/dL (8.5-10.5); Carbon Dioxide 23 mmol/L (22-29); Chloride 99 mmol/L (98-107); Globulin 3.7 g/dL (1.3-4.6); Glucose 192 mg/dL (65-115); Lipase 14 U/L (13-60); Osmolality Calculated 281 mOsm/kg (285-295); Potassium 4.4 mmol/L (3.5-5.1); Sodium 133 mmol/L (136-145); Total Bilirubin 0.4 mg/dL (0.15-1.2); Total Protein 6.8 g/dL (6.6-8.7)
[2022-03-18] MEDS: Fleet Enema 133 mL Enema PR (19:12)
[2022-03-18] MEDS: lactulose oral liq 20 gm/30 mL UDC 30 GM PO (19:12)
--- NOTE | 2022-03-18 19:39 | PC.NURSE ---
PATIENT PLACED ON BEDSIDE COMMODE AFTER ENEMA. PATIENT ABLE TO HAVE BOWEL MOVEMENT.
[2022-03-18 19:45] VITALS: BP 132/75; PULSE 81; RESP 16; O2SAT 97
== END 2022-03-18 19:47 | disposition home or self-care (01) ==
PROVIDERS: Emergency Medicine; Family Medicine; Emergency Provider Emergency Medicine; PCP Family Medicine
DX: K59.00 Constipation, unspecified (principal); Z79.84 Long term (current) use of oral hypoglycemic drugs; Z79.82 Long term (current) use of aspirin; Z79.4 Long term (current) use of insulin; E11.9 Type 2 diabetes mellitus without complications; I10 Essential (primary) hypertension
CPT/HCPCS: 36415; 74018; 80053; 83605; 83690; 85025; 99284

== ENCOUNTER → 2022-03-26 14:29 | Outpatient (BNVA) | payer MEDICARE, MEDICAID, SELFPAY | PROVIDERS: PCP Family Medicine; Visit Provider Family Medicine | DX: E11.40 Type 2 diabetes mellitus with diabetic neuropathy, unspecified (principal); E11.65 Type 2 diabetes mellitus with hyperglycemia; R60.9 Edema, unspecified | CPT/HCPCS: 83036; 83880; 84443 ==

== ENCOUNTER → 2022-04-25 16:18 | Outpatient (BNVA) | payer MEDICARE, MEDICAID, SELFPAY | PROVIDERS: PCP Family Medicine; Visit Provider Nurse Practitioner Family | DX: R05.9 Cough, unspecified (principal); J06.9 Acute upper respiratory infection, unspecified | CPT/HCPCS: 87400; 87426 ==

== ENCOUNTER → 2022-07-09 13:09 | Outpatient (BNVA) | payer MEDICARE, MEDICAID, SELFPAY | PROVIDERS: PCP Family Medicine; Visit Provider Family Medicine | DX: R60.9 Edema, unspecified (principal); F32.A Depression, unspecified; Z01.810 Encounter for preprocedural cardiovascular examination | CPT/HCPCS: 80048; 83880; 84443 ==

== ENCOUNTER → 2023-12-22 15:58 | Outpatient (BNVA) | payer MEDICARE, SELFPAY | PROVIDERS: PCP Family Medicine; Visit Provider Family Medicine | DX: E11.9 Type 2 diabetes mellitus without complications (principal) | CPT/HCPCS: 80053; 83036; 84439; 84443; 85025 ==

== ENCOUNTER → 2024-03-30 14:39 | Outpatient (BNVA) | payer MEDICARE, SELFPAY | PROVIDERS: PCP Family Medicine; Visit Provider Family Medicine | DX: E11.40 Type 2 diabetes mellitus with diabetic neuropathy, unspecified (principal); E11.65 Type 2 diabetes mellitus with hyperglycemia | CPT/HCPCS: 80053; 83036; 85025 ==

== ENCOUNTER → 2024-09-12 15:41 | Outpatient (BNVA) | payer MEDICARE, SELFPAY | PROVIDERS: PCP Family Medicine; Visit Provider Family Medicine | DX: E11.40 Type 2 diabetes mellitus with diabetic neuropathy, unspecified (principal); E11.65 Type 2 diabetes mellitus with hyperglycemia | CPT/HCPCS: 80053; 80061; 83036; 85025 ==

== ENCOUNTER → 2024-10-11 15:36 | Outpatient (BNVA) | payer MEDICARE, SELFPAY | PROVIDERS: PCP Family Medicine; Visit Provider Family Medicine | DX: D69.6 Thrombocytopenia, unspecified (principal) | CPT/HCPCS: 80503; 85025 ==

== ENCOUNTER → 2025-03-22 14:35 | Outpatient (BNVA) | payer MEDICARE, SELFPAY | PROVIDERS: PCP Family Medicine; Visit Provider Nurse Practitioner Family | DX: L57.8 Other skin changes due to chronic exposure to nonionizing radiation (principal); L81.4 Other melanin hyperpigmentation; L82.1 Other seborrheic keratosis; D18.01 Hemangioma of skin and subcutaneous tissue; L91.8 Other hypertrophic disorders of the skin; R20.8 Other disturbances of skin sensation; Z78.9 Other specified health status; L53.8 Other specified erythematous conditions; D48.5 Neoplasm of uncertain behavior of skin | CPT/HCPCS: 17110; 69100; 99203 ==